=== PATIENT | male | born 1935 ===

== ENCOUNTER 2016-12-06 11:07 | Inpatient (IN) | payer MEDICARE, OTHER ==
[2016-12-06 11:07] VITALS: BMI 32.1
[2016-12-06 12:27] LABS: BASO # 0.1 K/uL (0.0-0.2); BASO % 0.8 % (0.0-2.0); EOS # 0.2 K/uL (0.0-0.7); EOS % 1.9 % (0.0-4.0); HEMATOCRIT 35.6 % (35.0-51.0); LYMPH # 0.9 K/uL (1.0-4.3); LYMPH % 10.6 % (20.0-40.0); MEAN CELL VOLUME 89.7 fl (80.0-94.0); MEAN CORPUSCULAR HEMOGLOBIN 28.9 pg (27.0-31.0); MEAN CORPUSCULAR HGB CONC 32.2 g/dL (33.0-37.0); MONO % 10.8 % (0.0-10.0); NEUT # 6.7 K/uL (1.8-7.0); NEUT % 75.9 % (50.0-75.0); RED CELL DISTRIBUTION WIDTH 17.6 % (11.5-14.5); WHITE BLOOD COUNT 8.9 K/uL (4.8-10.8)
[2016-12-06 12:40] LABS: ALB/GLOB RATIO 1.5 (1.0-2.1); BILIRUBIN,TOTAL 1.6 mg/dl (0.2-1.3); CALCIUM 10.1 mg/dL (8.4-10.2); POTASSIUM 3.9 MMOL/L (3.6-5.0); TOTAL PROTEIN 6.8 G/DL (6.3-8.2)
[2016-12-06 12:51] LABS: TROPONIN I 0.021 ng/mL (0.00-0.120)
[2016-12-06 13:12] LABS: PARTIAL THROMBOPLASTIN TIME 41.4 SECONDS (23.3-32.5)
--- NOTE | 2016-12-06 13:26 | RAD ---
PROCEDURE: CHEST RADIOGRAPH, 1 VIEW HISTORY: CP COMPARISON: 08/12/2016 FINDINGS: LUNGS: Increased pulmonary vascular congestion. No focal airspace opacity. PLEURA: No pneumothorax or significant pleural fluid seen. CARDIOVASCULAR: Enlarged cardiomediastinal silhouette, essentially stable. OSSEOUS STRUCTURES: The osseous structures demonstrate degenerative changes. VISUALIZED UPPER ABDOMEN: Upper abdomen is suboptimally evaluated. OTHER FINDINGS: None. IMPRESSION: Increased pulmonary vascular congestion. Enlarged heart, stable. Please note that chest radiographs have low sensitivity for small pulmonary nodules. If indicated, chest CT should be obtained.
--- NOTE | 2016-12-06 14:00 | US ---
PROCEDURE: Bilateral lower extremity venous duplex Doppler. HISTORY: BLE swelling COMPARISON: 08/09/2016. TECHNIQUE: Bilateral common femoral, superficial femoral, popliteal and posterior tibial veins were evaluated. Flow was assessed with color Doppler, compressibility, assessment of phasic flow and augmentation response. FINDINGS: COMMON FEMORAL VEIN: Right CFV: Unremarkable. Left CFV: Unremarkable. SUPERFICIAL FEMORAL VEIN: Right SFV: Unremarkable. Left SFV: Unremarkable. POPLITEAL VEIN: Right Popliteal: Unremarkable. Left Popliteal: Unremarkable. POSTERIOR TIBIAL VEIN: Right PTV: Unremarkable. Left PTV: Unremarkable. OTHER FINDINGS: Extensive edema in the lower extremities. Heterogeneous hypoechoic structure/fluid collection in the right popliteal fossa, without internal vascularity. This could represent a synovial cyst. IMPRESSION: No evidence of deep venous thrombosis. Extensive soft tissue edema bilaterally.
[2016-12-06] MEDS ORDERED: Albuterol-Ipratrop 3 mg / 0.5 (3 ml) UD IH PRN (14:29)
[2016-12-06] MEDS ORDERED: Ergocalciferol 50,000 Intl Units Cap PO SCH (14:30)
--- NOTE | 2016-12-06 16:07 | CP.PCM.HP ---
History of Present Illness - History of Present Illness History of Present Illness: Chief Complaint: leg pain and generalized weakness HPI: 81M with history of AFib, mod MR, mild to mod Pulm HTN, DM2, HTN, CKD stage III and Gout presented today with a 2 day history of worsening moderate lower extremity edema associated with mild shortness of breath and fatigue. In ER dopplers were negative, CXR showed vasc congestion, and BNP was elevated. He has a history of mod MR and mild to moderate pulmonary hypertension. Lasix 80IVP given in ER. Troponin neg. EKG Afib rate controlled at 61. Patient will be admitted for further diuresis and monitoring on tele. Vitals are stable no acute distress. ROS: Per HPI, all other systems reviewed negative by me PMH: AFib, DM2, HTN, CKD stage III, splenic lesion and Gout PSH: hernia repair FH: denies SH: denies tobacco, etoh, ivdu ALLERGIES: NKDA MEDICATIONS: reviewed and as below GENERAL APPEARANCE: Well developed, well nourished, alert and cooperative, appears fatigued HEENT: normocephalic, atraumatic PERRL, EOMI. Vision is grossly intact. External auditory canals clear, hearing grossly intact. No nasal discharge. Oral cavity and pharynx normal. No inflammation, swelling, exudate, or lesions. NECK: Neck supple, non-tender without lymphadenopathy, masses or thyromegaly. CARDIAC: Normal S1 and S2. No S3, S4 or murmurs. Rhythm is regular. LUNGS: Clear to auscultation +rales no rhonchi, wheezing, diminished breath sounds. ABDOMEN: Positive bowel sounds. Soft, nondistended, nontender. No guarding or rebound. No masses. BACK: Examination of the spine reveals no spinal deformity, symmetry of spinal muscles, EXTREMITIES: No significant deformity or joint abnormality. No edema. NEUROLOGICAL: Strength and sensation symmetric and intact throughout. Reflexes 2 + throughout. SKIN: Skin normal color, texture PSYCHIATRIC: The patient was oriented to person, place, and time. Normal affect. LABS: 12/06/16 12:17 12/06/16 12:17 BNP [id number] IMAGING STUDIES CXR vascular congestion Dopplers neg for DVT EKG AFIB rate controlled 61 ACTIVE MEDICATIONS Albuterol/Ipratropium [Duoneb 3 mg/0.5 mg (3 ml) UD] 3 ml IH Q6H PRN Docusate [Colace] 100 mg PO BID PRN Zolpidem [Ambien] 5 mg PO HS PRN Dabigatran [Pradaxa] 75 mg PO Q12H Anticoagulation Clinical Indication: Atrial Fibrillation Ergocalciferol [Drisdol 50,000 Intl Units Cap] 1 cap PO QWK Atenolol [Tenormin] 50 mg PO BID Dorzolamide 2% [Trusopt] 1 drop OU TID Famotidine [Pepcid] 20 mg PO BID Gabapentin [Neurontin] 300 mg PO TID Atorvastatin [Lipitor] 10 mg PO QPM Furosemide [Lasix] 60 mg IVP Q12 Latanoprost 0.005% Opht [Xalatan Opht] 1 drop OU HS Allopurinol [Zyloprim] 100 mg PO DAILY Folic Acid 1 mg PO DAILY Lidocaine 5% [Lidoderm] 1 ea TD DAILY Losartan [Cozaar] 100 mg PO DAILY amLODIPine [Norvasc] 10 mg PO DAILY ASSESSMENT AND PLAN 81M with history of AFib, mod MR, mild to mod Pulm HTN, DM2, HTN, CKD stage III and Gout presented today with a 2 day history of worsening moderate lower extremity edema associated with mild shortness of breath and fatigue. In ER dopplers were negative, CXR showed vasc congestion, and BNP was elevated. He has a history of mod MR and mild to moderate pulmonary hypertension. Lasix 80IVP given in ER. Troponin neg. EKG Afib rate controlled at 61. Patient will be admitted for further diuresis and monitoring on tele. Vitals are stable no acute distress. (1) Diastolic CHF, acute on chronic, EF normal Admitted for fatigue, lower extremity edema and increased SOB elevated pro BNP ECHO: mod MR, mild to mod Pulm HTN cont Lasix 60 IV Q12, BB, Cozaar Na and fluid restriction monitor I/O monitor BMP (2) Hypertension Cont Atenolol, Cozaar, Norvasc elevated, reassess after diuresis today (3) Atrial fibrillation, chronic, rate controlled cont renally dosed Pradaxa cont Atenolol (4) CKD (chronic kidney disease) stage 4, GFR 15-29 ml/min at baseline Cr cont Cozaar stable (5) DM2 (diabetes mellitus, type 2) accucheck ISS protocol (6) Gouty arthritis cont Allopurinol (7) DVT prophylaxis Pt on Pradaxa Present on Admission - Present on Admission Any Indicators Present on Admission: No Past Patient History - Infectious Disease Hx of Infectious Diseases: None - Tetanus Immunizations Tetanus Immunization: Unknown - Past Medical History & Family History Past Medical History?: Yes - Past Social History Smoking Status: Never Smoked - CARDIAC Hx Cardiac Disorders: Yes Hx Atrial Fibrillation: Yes Hx Congestive Heart Failure: Yes Hx Hypercholesterolemia: Yes Hx Hypertension: Yes - PULMONARY Hx Respiratory Disorders: No - NEUROLOGICAL Hx Neurological Disorder: No - HEENT Hx HEENT Problems: Yes Hx Cataracts: Yes Hx Glaucoma: Yes - RENAL Hx Chronic Kidney Disease: Yes - ENDOCRINE/METABOLIC Hx Endocrine Disorders: Yes Hx Diabetes Mellitus Type 2: Yes - HEMATOLOGICAL/ONCOLOGICAL Hx Blood Disorders: No Hx Human Immunodeficiency Virus (HIV): No - INTEGUMENTARY Hx Dermatological Problems: No - MUSCULOSKELETAL/RHEUMATOLOGICAL Hx Musculoskeletal Disorders: Yes Hx Arthritis: Yes Hx Falls: Yes Hx Gout: Yes - GASTROINTESTINAL Hx Gastritis: Yes - GENITOURINARY/GYNECOLOGICAL Hx Genitourinary Disorders: No - PSYCHIATRIC Hx Substance Use: No - SURGICAL HISTORY Hx Surgeries: Yes Hx Cholecystectomy: Yes Hx Orthopedic Surgery: Yes (right knee surgery) Other/Comment: Right knee surgery - ANESTHESIA Hx Anesthesia: Yes Hx Anesthesia Reactions: No Hx Malignant Hyperthermia: No Meds Allergies/Adverse Reactions: Allergies Allergy/AdvReac Type Severity Reaction Status Date / Time No Known Allergies Allergy Verified 08/09/16 10:45 Results - Vital Signs Recent Vital Signs: Last Vital Signs Temp 98.3 F 12/06/16 11:35 Pulse 65 12/06/16 11:35 Resp 21 12/06/16 11:35 BP 157/93 H 12/06/16 14:34 Pulse Ox 98 12/06/16 11:35 - Labs Result Diagrams: 12/06/16 12:17 12/06/16 12:17
--- NOTE | 2016-12-06 16:35 | ED PDOC ---
HPI: SOB/CHF/COPD Time Seen by Provider: 12/06/16 11:30 Chief Complaint (Nursing): Lower Extremity Problem/Injury Chief Complaint (Provider): Shortness of Breath History Per: Patient History/Exam Limitations: no limitations Onset/Duration Of Symptoms: Days (1 week) Current Symptoms Are (Timing): Still Present Current Respiratory Medications: See Home Med List Severity: Moderate Associated Symptoms: Chest Pain, Ankle/Leg Swelling (b/l leg swelling), Other ( dry cough). denies: Fever, Bloody Cough, Productive Cough Additional Complaint(s): Noe Diego is a 81 year old female, a past medical history of congestive heart failure, atrial fibrillation, and hypertension, who presents to the emergency department via EMS for the evaluation of shortness of breath, that the patient has been experiencing for 1 week. Associated bilateral leg swelling, a dry cough, and chest pain are currently present. Denies a fever. Of note, patient is compliant with all of his medications. PMD: Mason Robertson Past Medical History Reviewed: Historical Data, Nursing Documentation, Vital Signs Vital Signs: Last Vital Signs Temp 97.8 F 12/08/16 16:13 Pulse 64 12/08/16 17:39 Resp 20 12/08/16 16:13 BP 144/81 12/08/16 17:39 Pulse Ox 97 12/08/16 16:13 - Medical History PMH: Arthritis, Atrial Fibrillation, CHF, Diabetes (type II), Gastritis, HTN, Hypercholesterolemia, Hyperlipidemia, Chronic Kidney Disease Denies: HIV Other PMH: Cataracts, Glaucoma - Surgical History Surgical History: Cholecystectomy, Hernia Repair Other surgeries: R Knee Surgery - Family History Family History: States: No Known Family Hx - Social History Current smoker - smoking cessation education provided: No Ex-Smoker (has not smoked in the last 12 months): No Alcohol: Occasional Drugs: Denies - Home Medications Home Medications: Ambulatory Orders Medication Instructions Recorded Albuterol/Ipratropium [Duoneb 3 3 ml IH Q6H PRN 08/09/16 mg/0.5 mg (3 ml) UD] Allopurinol [Zyloprim] 100 mg PO DAILY 08/09/16 Atenolol [Tenormin] 50 mg PO BID 08/09/16 Dabigatran [Pradaxa] 75 mg PO Q12H 08/09/16 Dorzolamide 2% [Trusopt] 1 drop EACHEYE TID 08/09/16 Ergocalciferol (Vitamin D2) 50,000 unit PO QWK 08/09/16 [Vitamin D2] Folic Acid 1 mg PO DAILY 08/09/16 Gabapentin [Neurontin] 300 mg PO TID 08/09/16 Losartan [Cozaar] 100 mg PO DAILY 08/09/16 Simvastatin [Zocor] 20 mg PO QPM 08/09/16 Travoprost [Travatan Z] 1 drop EACHEYE HS 08/09/16 amLODIPine [Norvasc] 10 mg PO DAILY 08/09/16 Docusate [Colace] 100 mg PO BID PRN #0 cap 08/14/16 Famotidine [Pepcid] 20 mg PO BID tab 08/14/16 Furosemide [Lasix] 40 mg PO Q12 tab 08/14/16 Lidocaine 5% [Lidoderm] 1 ea TD DAILY patch 08/14/16 Zolpidem [Ambien] 5 mg PO HS PRN #0 08/14/16 traMADol [Ultram] 50 mg PO Q6 PRN #0 tab 08/14/16 - Allergies Allergies/Adverse Reactions: Allergies Allergy/AdvReac Type Severity Reaction Status Date / Time No Known Allergies Allergy Verified 08/09/16 10:45 Review of Systems ROS Statement: Except As Marked, All Systems Reviewed And Found Negative Constitutional: Negative for: Fever Cardiovascular: Positive for: Chest Pain, Edema (b/l leg swelling) Respiratory: Positive for: Cough, Shortness of Breath. Negative for: Hemoptysis , Sputum Physical Exam - Reviewed Nursing Documentation Reviewed: Yes Vital Signs Reviewed: Yes - Physical Exam Appears: Positive for: Non-toxic, No Acute Distress Head Exam: Positive for: ATRAUMATIC, NORMOCEPHALIC Skin: Positive for: Normal Color, Warm Cardiovascular/Chest: Positive for: Irregularly Irregular. Negative for: Regular Rate, Rhythm (regular rate, not rhythm), Murmur Respiratory: Positive for: Normal Breath Sounds, Respiratory Distress (mild). Negative for: Wheezing Gastrointestinal/Abdominal: Positive for: Normal Exam, Soft. Negative for: Tenderness Back: Positive for: Normal Inspection. Negative for: L CVA Tenderness, R CVA Tenderness Extremity: Positive for: Normal ROM, Pedal Edema (pitting, 3+ to b/l knees), Swelling. Negative for: Tenderness Neurologic/Psych: Positive for: Alert, Oriented - Laboratory Results Result Diagrams: 12/07/16 05:30 12/08/16 06:40 - ECG Interpretation Of ECG: A fib @ 61, LAD, IRBBB. O2 Sat by Pulse Oximetry: 98 (RA) Pulse Ox Interpretation: Normal - Radiology X-Ray: Read By Radiologist (Increased pulmonary vascular congestion. Enlarged heart, stable. Please note that chest radiographs have low sensitivity for small pulmonary nodules. If indicated, chest CT should be obtained.) - Progress ED Course And Treament: Pt administered Lasix 80 mg IVP. - Physician Consult Information Physician Contacted: Mason Robertson Outcome Of Conversation: Case discussed, agrees with admission. Medical Decision Making Medical Decision Makin:30 Initial Impression: Chest pain Differential Diagnoses include, but are not limited to, congestive heart failure , bronchitis, and pneumonia. Initial Plan: * Duplex Lower Extrm Vein Bilat US * Chest X-Ray * Electrocardiogram * Complete Blood Count * Comprehensive Metabolic Panel * Prothrombin Time * Partial Thromboplastin Time * B-Type Natriuretic Peptide * Troponin I * Lasix 60 mg IVP * Blood Culture * Reevaluation Scribe Attestation: Documented by Mendel Singleton, acting as a scribe for Julia Carpenter MD. Provider Scribe Attestation: All medical record entries made by the Scribe were at my direction and personally dictated by me. I have reviewed the chart and agree that the record accurately reflects my personal performance of the history, physical exam, medical decision making, and the department course for this patient. I have also personally directed, reviewed, and agree with the discharge instructions and disposition. Disposition - Clinical Impression Clinical Impression: CHF exacerbation - Patient ED Disposition Is Patient to be Admitted: Yes - Disposition Disposition Time: 14:24 Condition: STABLE - Pt Status Changed To: Hospital Disposition Of: Inpatient - Admit Certification Admit to Inpatient:: After my assessment, the patient will require hospitalization for at least two midnights. This is because of the severity of symptoms shown, intensity of services needed, and/or the medical risk in this patient being treated as an outpatient. - POA Present On Arrival: None
[2016-12-06] MEDS: Dorzolamide 2% Ophth Soln OU SCH (20:20)
[2016-12-06] MEDS: Latanoprost 0.005% Opht SOUTION OU SCH (21:05)
[2016-12-06] MEDS: Insulin Lispro (humaLOG) 100 Units/ml Inj SC SCH (21:09)
[2016-12-07] MEDS: Insulin Lispro (humaLOG) 100 Units/ml Inj SC SCH ×4 (06:38→21:54)
[2016-12-07 06:46] LABS: HEMATOCRIT 34.8 % (35.0-51.0); MEAN CELL VOLUME 91.1 fl (80.0-94.0); MEAN CORPUSCULAR HEMOGLOBIN 29.4 pg (27.0-31.0); MEAN CORPUSCULAR HGB CONC 32.2 g/dL (33.0-37.0); WHITE BLOOD COUNT 9.3 K/uL (4.8-10.8)
[2016-12-07 06:51] LABS: CALCIUM 9.7 mg/dL (8.4-10.2); POTASSIUM 3.4 MMOL/L (3.6-5.0)
[2016-12-07 07:03] LABS: TROPONIN I 0.023 ng/mL (0.00-0.120)
[2016-12-07 07:21] LABS: THYROID STIMULATING HORMONE 1.41 mIU/ML (0.46-4.68)
--- NOTE | 2016-12-07 08:07 | CARD ---
APPROVED REPORT EKG Measurement Heart [id number] <Conclusion> Atrial fibrillation Left axis deviation Incomplete right bundle branch block Nonspecific ST and T wave abnormality Abnormal ECG
[2016-12-07] MEDS: Lidocaine 5% Patch TD SCH (09:20)
[2016-12-07] MEDS: Dorzolamide 2% Ophth Soln OU SCH ×3 (09:21→17:37)
--- NOTE | 2016-12-07 09:48 | CP.PCM.PN ---
Subjective - Date & Time of Evaluation Date of Evaluation: 12/07/16 Time of Evaluation: 09:00 - Subjective Subjective: Pt feels better no SOB at present no CP still with bilateral leg edema no abd pain Objective - Vital Signs/Intake and Output Vital Signs (last 24 hours): Temp Pulse Resp BP Pulse Ox 98.0 F 61 20 157/98 H 99 12/07/16 08:23 12/07/16 09:21 12/07/16 08:23 12/07/16 09:21 12/07/16 08:23 - Medications Medications: Current Medications Albuterol/Ipratropium (Duoneb 3 Mg/0.5 Mg (3 Ml) Ud) 3 ml IH Q6H PRN PRN Reason: Shortness of Breath Allopurinol (Zyloprim) 100 mg PO DAILY [facility] Last Admin: 12/07/16 09:17 Dose: 100 mg Amlodipine Besylate (Norvasc) 5 mg PO DAILY [facility] Last Admin: 12/07/16 09:20 Dose: 5 mg Atenolol (Tenormin) 50 mg PO BID [facility] Last Admin: 12/07/16 09:18 Dose: 50 mg Atorvastatin Calcium (Lipitor) 10 mg PO QPM [facility] Last Admin: 12/06/16 20:19 Dose: 10 mg Dabigatran (Pradaxa) 75 mg PO Q12H [facility] PRN Reason: Protocol Last Admin: 12/07/16 03:39 Dose: 75 mg Docusate Sodium (Colace) 100 mg PO BID PRN PRN Reason: Constipation Dorzolamide HCl (Trusopt) 1 drop OU TID [facility] Last Admin: 12/07/16 09:21 Dose: 1 drop Ergocalciferol (Drisdol 50,000 Intl Units Cap) 1 cap PO QWK [facility] Famotidine (Pepcid) 20 mg PO BID [facility] Last Admin: 12/07/16 09:17 Dose: 20 mg Folic Acid (Folic Acid) 1 mg PO DAILY [facility] Last Admin: 12/07/16 09:21 Dose: 1 mg Furosemide (Lasix) 40 mg IV Q12 [facility] Last Admin: 12/07/16 09:20 Dose: 40 mg Gabapentin (Neurontin) 300 mg PO TID [facility] Last Admin: 12/07/16 09:17 Dose: 300 mg Hydralazine HCl (Apresoline) 10 mg PO TID [facility] Last Admin: 12/07/16 09:19 Dose: 10 mg Insulin Human Lispro (Humalog) 0 units SC ACHS JESSY PRN Reason: Protocol Last Admin: 12/07/16 06:38 Dose: Not Given Latanoprost (Xalatan Opht) 1 drop OU HS [facility] Last Admin: 12/06/16 21:05 Dose: 1 drop Lidocaine (Lidoderm) 1 ea TD DAILY [facility] Last Admin: 12/07/16 09:20 Dose: 1 ea Losartan Potassium (Cozaar) 100 mg PO DAILY [facility] Last Admin: 12/07/16 09:21 Dose: 100 mg Spironolactone (Aldactone) 25 mg PO DAILY [facility] Last Admin: 12/07/16 09:19 Dose: 25 mg Zolpidem Tartrate (Ambien) 5 mg PO HS PRN PRN Reason: Insomnia Last Admin: 12/06/16 23:51 Dose: 5 mg - Labs Labs: 12/07/16 05:30 12/07/16 05:30 PT 13.5 SECONDS (9.6-11.2) H 12/06/16 12:17 INR 1.30 (0.92-1.08) H 12/06/16 12:17 APTT 41.4 SECONDS (23.3-32.5) H 12/06/16 12:17 - Constitutional Appears: No Acute Distress, Chronically Ill - Head Exam Head Exam: NORMAL INSPECTION, NORMOCEPHALIC - Eye Exam Eye Exam: EOMI, Normal appearance Pupil Exam: NORMAL ACCOMODATION - ENT Exam ENT Exam: Mucous Membranes Moist, Normal External Ear Exam - Neck Exam Neck Exam: Full ROM. absent: Meningismus - Respiratory Exam Respiratory Exam: Rales, NORMAL BREATHING PATTERN. absent: Wheezes, Respiratory Distress - Cardiovascular Exam Cardiovascular Exam: Irregular Rhythm, +S1, +S2 - GI/Abdominal Exam GI & Abdominal Exam: Soft, Normal Bowel Sounds. absent: Tenderness - Extremities Exam Extremities Exam: Normal Capillary Refill, Pedal Edema. absent: Calf Tenderness - Back Exam Back Exam: Full ROM. absent: CVA tenderness (L), CVA tenderness (R) - Neurological Exam Neurological Exam: Alert, Awake, CN II-XII Intact, Oriented x3 Neuro motor strength exam: Left Upper Extremity: 5, Right Upper Extremity: 5, Left Lower Extremity: 5, Right Lower Extremity: 5 - Psychiatric Exam Psychiatric exam: Normal Affect, Normal Mood - Skin Skin Exam: Dry, Normal Color, Warm Assessment and Plan - Assessment and Plan (Free Text) Assessment: 80 yo male with history of CHF, AFib, Gout, HTN, CKD and HLD, came in because of SOB and bilateral lower extremity edema. CXR showed increased Pulm vacsular congestion (1) CHF (congestive heart failure; Acute on chronic diastolic dysfunction ) continue Losartan 100mg PO daily cont IV lasix but decrease dose to 40 q12 add Aldactone and Hydralazine decrease Norvasc to 5 mg as this may contribute to leg edema (will keep for Pulm HTN) cardiology consult with Dr Bojorquez. ECHO May 2016 showed normal EF, mod Pulm HTN 2 . Bilateral LE edema Most likely due to mild CHF with overlying w/ dependent edema Venous doppler showed no DVT (3) Atrial fibrillation, chronic Chronic Heart rate controlled. continue Atenolol 50mg PO BID. Continue Pradaxa 75mg PO q 12hrs ( renal dose) - will monitor as Crea Cl (4) Hypertension Chronic BP stable. Continue Norvasc 5mg PO daily. Atenolol 50mg PO BID. Losartan 100mg PO daily added Hydralazine and Aldactone cont Lasix (5) CKD (chronic kidney disease) stage 3, GFR 30-59 ml/min Chronic stable 7. Multiple splenic lesions PET scan as outpatient, pt to ff up with Dr Ang as soon as d/c ] DVT proph - pt on Pradaxa
[2016-12-07] MEDS: Latanoprost 0.005% Opht SOUTION OU SCH (21:49)
[2016-12-08] MEDS: Insulin Lispro (humaLOG) 100 Units/ml Inj SC SCH ×4 (06:34→21:55)
[2016-12-08 08:12] LABS: CALCIUM 9.2 mg/dL (8.4-10.2); POTASSIUM 3.4 MMOL/L (3.6-5.0)
[2016-12-08] MEDS: Dorzolamide 2% Ophth Soln OU SCH ×3 (09:54→17:39)
[2016-12-08] MEDS: Lidocaine 5% Patch TD SCH (09:55)
--- NOTE | 2016-12-08 15:12 | CP.PCM.CON ---
History of Present Illness - History of Present Illness History of Present Illness: CC: Dyspnea. HPI: I have been requested on cardiology consultation by Dr. Malin for Mr. Diego who is a pleasant 81 year old male well known to our practice. He has a history of hypertension, diabetes, CKD and mitral regurgitation and presents with worsening dyspnea on exertion over the past couple of days associated with lower extremity edema and a cough with white sputum production. His symptoms began approximately 1 month ago prior which he could ambulate 15 blocks. However at the present time he is limited to walking only one block before he has to rest due to his shortness of breath. He denies chest pain, fever, chills , nausea, vomiting, abdominal pain or weakness and states that he has been compliant with his medications and no changes in his regimen have been made to account for progression of his symptoms. The patient was treated with IV furosemide with significant improvement in his dyspnea and is currently OOB to a chair without complaints. Labs reveal a BUN/Cr of 43/2.8, Hgb of 11.2 and BNP of 5640. A chest Xray shows cardiomegaly and CHF, ECG reveals atrial fibrillation at 61 BPM, LAD, IRBBB and two sets of troponins are negative. Review of Systems - Constitutional Constitutional: As Per HPI, Fatigue - EENT Additional comments: Negative. - Cardiovascular Cardiovascular: Dyspnea on Exertion, Edema, Pedal Edema - Respiratory Respiratory: Dyspnea on Exertion, Chest Congestion - Gastrointestinal Additional comments: Negative. - Genitourinary Additional comments: Negative. - Musculoskeletal Additional comments: Negative. - Integumentary Additional comments: Negative. - Neurological Additional comments: Negative. - Psychiatric Additional comments: Negative. - Endocrine Additional Comments: Negative. - Hematologic/Lymphatic Additional comments: Negative. Past Patient History - Infectious Disease Hx of Infectious Diseases: None - Tetanus Immunizations Tetanus Immunization: Unknown - Past Medical History & Family History Past Medical History?: Yes - Past Social History Smoking Status: Never Smoked Chewing Tobacco Use: No Cigar Use: No Alcohol: None Drugs: Denies - CARDIAC Hx Cardiac Disorders: Yes Hx Atrial Fibrillation: Yes Hx Congestive Heart Failure: Yes Hx Hypercholesterolemia: Yes Hx Hypertension: Yes - PULMONARY Hx Respiratory Disorders: No - NEUROLOGICAL Hx Neurological Disorder: No - HEENT Hx HEENT Problems: Yes Hx Cataracts: Yes Hx Glaucoma: Yes - RENAL Hx Chronic Kidney Disease: Yes - ENDOCRINE/METABOLIC Hx Endocrine Disorders: Yes Hx Diabetes Mellitus Type 2: Yes - HEMATOLOGICAL/ONCOLOGICAL Hx Blood Disorders: No Hx Human Immunodeficiency Virus (HIV): No - INTEGUMENTARY Hx Dermatological Problems: No - MUSCULOSKELETAL/RHEUMATOLOGICAL Hx Musculoskeletal Disorders: Yes Hx Arthritis: Yes Hx Falls: Yes Hx Gout: Yes - GASTROINTESTINAL Hx Gastrointestinal Disorders: Yes Hx Gastritis: Yes - GENITOURINARY/GYNECOLOGICAL Hx Genitourinary Disorders: No - PSYCHIATRIC Hx Psychophysiologic Disorder: No Hx Substance Use: No - SURGICAL HISTORY Hx Surgeries: Yes Hx Cholecystectomy: Yes Hx Herniorrhaphy: Yes (hernia repair) Hx Orthopedic Surgery: Yes (right knee surgery) Other/Comment: Right knee surgery - ANESTHESIA Hx Anesthesia: Yes Hx Anesthesia Reactions: No Hx Malignant Hyperthermia: No Meds Allergies/Adverse Reactions: Allergies Allergy/AdvReac Type Severity Reaction Status Date / Time No Known Allergies Allergy Verified 08/09/16 10:45 - Medications Medications: Current Medications Albuterol/Ipratropium (Duoneb 3 Mg/0.5 Mg (3 Ml) Ud) 3 ml IH Q6H PRN PRN Reason: Shortness of Breath Allopurinol (Zyloprim) 100 mg PO DAILY [facility] Last Admin: 12/08/16 09:54 Dose: 100 mg Amlodipine Besylate (Norvasc) 5 mg PO DAILY [facility] Last Admin: 12/08/16 09:56 Dose: 5 mg Atenolol (Tenormin) 50 mg PO BID [facility] Last Admin: 12/08/16 09:52 Dose: 50 mg Atorvastatin Calcium (Lipitor) 10 mg PO QPM [facility] Last Admin: 12/07/16 17:42 Dose: 10 mg Dabigatran (Pradaxa) 75 mg PO Q12 [facility] PRN Reason: Protocol Last Admin: 12/08/16 09:52 Dose: 75 mg Docusate Sodium (Colace) 100 mg PO BID PRN PRN Reason: Constipation Dorzolamide HCl (Trusopt) 1 drop OU TID [facility] Last Admin: 12/08/16 12:47 Dose: 1 drop Ergocalciferol (Drisdol 50,000 Intl Units Cap) 1 cap PO QWK [facility] Famotidine (Pepcid) 20 mg PO BID [facility] Last Admin: 12/08/16 09:53 Dose: 20 mg Folic Acid (Folic Acid) 1 mg PO DAILY [facility] Last Admin: 12/08/16 09:54 Dose: 1 mg Furosemide (Lasix) 40 mg IV Q12 [facility] Last Admin: 12/08/16 09:52 Dose: 40 mg Gabapentin (Neurontin) 300 mg PO TID [facility] Last Admin: 12/08/16 12:47 Dose: 300 mg Hydralazine HCl (Apresoline) 10 mg PO TID [facility] Last Admin: 12/08/16 12:47 Dose: 10 mg Insulin Human Lispro (Humalog) 0 units SC ACHS [facility] PRN Reason: Protocol Last Admin: 12/08/16 12:45 Dose: Not Given Latanoprost (Xalatan Opht) 1 drop OU HS [facility] Last Admin: 12/07/16 21:49 Dose: 1 drop Lidocaine (Lidoderm) 1 ea TD DAILY [facility] Last Admin: 12/08/16 09:55 Dose: 1 ea Losartan Potassium (Cozaar) 100 mg PO DAILY [facility] Last Admin: 12/08/16 09:55 Dose: 100 mg Spironolactone (Aldactone) 25 mg PO DAILY [facility] Last Admin: 12/08/16 09:55 Dose: 25 mg Zolpidem Tartrate (Ambien) 5 mg PO HS PRN PRN Reason: Insomnia Last Admin: 12/07/16 21:49 Dose: 5 mg Physical Exam - Constitutional Appears: Well, Non-toxic, No Acute Distress - Head Exam Head Exam: NORMAL INSPECTION, NORMOCEPHALIC - Eye Exam Eye Exam: Normal appearance, PERRL - ENT Exam ENT Exam: Mucous Membranes Moist, Normal Exam - Neck Exam Neck exam: Positive for: Normal Inspection - Respiratory Exam Respiratory Exam: Clear to Auscultation Bilateral, NORMAL BREATHING PATTERN - Cardiovascular Exam Cardiovascular Exam: Irregular Rhythm, +S1, +S2, Systolic Murmur - GI/Abdominal Exam GI & Abdominal Exam: Soft - Rectal Exam Rectal Exam: Deferred - Extremities Exam Extremities exam: Positive for: pedal edema - Back Exam Back exam: NORMAL INSPECTION - Neurological Exam Neurological exam: Alert, Oriented x3 - Psychiatric Exam Psychiatric exam: Normal Affect, Normal Mood - Skin Skin Exam: Dry, Intact Results - Vital Signs Recent Vital Signs: Last Vital Signs Temp 98.7 F 12/08/16 11:58 Pulse 66 12/08/16 12:47 Resp 18 12/08/16 11:58 BP 121/77 12/08/16 12:47 Pulse Ox 97 12/08/16 11:58 - Labs Result Diagrams: 12/07/16 05:30 12/08/16 06:40 Labs: Laboratory Results - last 24 hr 12/07/16 12/07/16 12/08/16 15:29 20:56 05:02 Sodium Potassium Chloride Carbon Dioxide Anion Gap BUN Creatinine Est GFR ( Amer) Est GFR (Non-Af Amer) POC Glucose (mg/dL) 89 146 H 97 Random Glucose Calcium 12/08/16 12/08/16 06:40 11:21 Sodium 143 Potassium 3.4 L Chloride 102 Carbon Dioxide 27 Anion Gap 17 BUN 43 H Creatinine 2.8 H Est GFR ( Amer) 26 Est GFR (Non-Af Amer) 22 POC Glucose (mg/dL) 126 H Random Glucose 86 Calcium 9.2 Assessment & Plan - Assessment and Plan (Free Text) Assessment: CHF CMP Valvular heart disease HTN Chronic renal disease Plan: IV lasix Monitor I/O's Monitor renal function PT Will follow, thank you - Date & Time Date: 12/08/16 Time: 15:10
[2016-12-08] MEDS ORDERED: Potassium Chloride 20 mEq/15 ml LIQ UD PO ONE (18:58)
--- NOTE | 2016-12-08 19:03 | CP.PCM.PN ---
Subjective - Date & Time of Evaluation Date of Evaluation: 12/08/16 Time of Evaluation: 15:30 - Subjective Subjective: Patient seen and examined bedside.Sitting in chair in NAD. Still complaining of SOB with ambulation . Denies any Chest pain at present or SOB at rest. Denies any cough. No acute issues overnight BP 144/81 HR 64 , afebrile Objective - Vital Signs/Intake and Output Vital Signs (last 24 hours): Temp Pulse Resp BP Pulse Ox 97.8 F 64 20 144/81 98 12/08/16 16:13 12/08/16 17:39 12/08/16 16:13 12/08/16 17:39 12/08/16 18:37 Intake and Output: 12/08/16 12/08/16 06:59 18:59 Intake Total 600 Output Total 1350 Balance -750 - Medications Medications: Current Medications Albuterol/Ipratropium (Duoneb 3 Mg/0.5 Mg (3 Ml) Ud) 3 ml IH Q6H PRN PRN Reason: Shortness of Breath Allopurinol (Zyloprim) 100 mg PO DAILY [facility] Last Admin: 12/08/16 09:54 Dose: 100 mg Amlodipine Besylate (Norvasc) 5 mg PO DAILY [facility] Last Admin: 12/08/16 09:56 Dose: 5 mg Atenolol (Tenormin) 50 mg PO BID [facility] Last Admin: 12/08/16 17:39 Dose: 50 mg Atorvastatin Calcium (Lipitor) 10 mg PO QPM [facility] Last Admin: 12/08/16 17:39 Dose: 10 mg Dabigatran (Pradaxa) 75 mg PO Q12 [facility] PRN Reason: Protocol Last Admin: 12/08/16 09:52 Dose: 75 mg Docusate Sodium (Colace) 100 mg PO BID PRN PRN Reason: Constipation Dorzolamide HCl (Trusopt) 1 drop OU TID [facility] Last Admin: 12/08/16 17:39 Dose: 1 drop Ergocalciferol (Drisdol 50,000 Intl Units Cap) 1 cap PO QWK [facility] Famotidine (Pepcid) 20 mg PO BID [facility] Last Admin: 12/08/16 17:38 Dose: 20 mg Folic Acid (Folic Acid) 1 mg PO DAILY [facility] Last Admin: 12/08/16 09:54 Dose: 1 mg Furosemide (Lasix) 40 mg IV Q12 [facility] Last Admin: 12/08/16 09:52 Dose: 40 mg Gabapentin (Neurontin) 300 mg PO TID [facility] Last Admin: 12/08/16 17:39 Dose: 300 mg Hydralazine HCl (Apresoline) 10 mg PO TID [facility] Last Admin: 12/08/16 17:37 Dose: 10 mg Insulin Human Lispro (Humalog) 0 units SC ACHS [facility] PRN Reason: Protocol Last Admin: 12/08/16 17:38 Dose: Not Given Latanoprost (Xalatan Opht) 1 drop OU HS [facility] Last Admin: 12/07/16 21:49 Dose: 1 drop Lidocaine (Lidoderm) 1 ea TD DAILY [facility] Last Admin: 12/08/16 09:55 Dose: 1 ea Losartan Potassium (Cozaar) 100 mg PO DAILY [facility] Last Admin: 12/08/16 09:55 Dose: 100 mg Potassium Chloride (Potassium Chloride Oral Soln) 10 meq PO ONCE ONE Stop: 12/08/16 18:59 Spironolactone (Aldactone) 25 mg PO DAILY [facility] Last Admin: 12/08/16 09:55 Dose: 25 mg Zolpidem Tartrate (Ambien) 5 mg PO HS PRN PRN Reason: Insomnia Last Admin: 12/07/16 21:49 Dose: 5 mg - Labs Labs: 12/07/16 05:30 12/08/16 06:40 PT 13.5 SECONDS (9.6-11.2) H 12/06/16 12:17 INR 1.30 (0.92-1.08) H 12/06/16 12:17 APTT 41.4 SECONDS (23.3-32.5) H 12/06/16 12:17 - Constitutional Appears: Non-toxic, No Acute Distress - Head Exam Head Exam: ATRAUMATIC, NORMAL INSPECTION, NORMOCEPHALIC - Eye Exam Eye Exam: EOMI, Normal appearance, PERRL Pupil Exam: NORMAL ACCOMODATION - ENT Exam ENT Exam: Mucous Membranes Moist, Normal Exam - Neck Exam Neck Exam: Full ROM, Normal Inspection - Respiratory Exam Respiratory Exam: Clear to Ausculation Bilateral, NORMAL BREATHING PATTERN. absent: Rhonchi, Wheezes - Cardiovascular Exam Cardiovascular Exam: REGULAR RHYTHM, RRR, +S1, +S2. absent: JVD - GI/Abdominal Exam GI & Abdominal Exam: Soft, Normal Bowel Sounds. absent: Distended, Guarding, Tenderness, Rebound - Rectal Exam Rectal Exam: Deferred - Extremities Exam Extremities Exam: Full ROM, Normal Capillary Refill, Normal Inspection, Pedal Edema (1 +). absent: Calf Tenderness - Back Exam Back Exam: NORMAL INSPECTION - Neurological Exam Neurological Exam: Alert, Awake, CN II-XII Intact, Oriented x3 - Psychiatric Exam Psychiatric exam: Normal Affect - Skin Skin Exam: Dry, Normal Color, Warm Assessment and Plan - Assessment and Plan (Free Text) Assessment: 80 yo male with history of CHF, AFib, Gout, HTN, CKD and HLD, came in because of SOB and bilateral lower extremity edema.As per patient he can not ambulate more rthan 1 block . CXR showed increased Pulmonary vascular congestion. ProBNP was elevated.Patient admitted for CHF exacerbation and cardiology consulted. 1. CHF exacerbation (congestive heart failure; Acute on chronic diastolic dysfunction ) improving continue Losartan 100mg PO daily cont IV lasix 40 mg q12 added Aldactone and Hydralazine decreased Norvasc to 5 mg as this may contribute to leg edema (will keep for Pulm HTN) cardiology consult with Dr Bojorquez appreciated ECHO 2015 showed normal EF, mod Pulm HTN Continue low salt diet 2 . Bilateral LE edema Most likely due to mild CHF with overlying w/ dependent edema Venous doppler showed no DVT Continue lasix 3. Atrial fibrillation, chronic Chronic Heart rate controlled. continue Atenolol 50mg PO BID. Continue Pradaxa 75mg PO q 12hrs ( renal dose) 4. Hypertension Chronic BP stable. Continue Norvasc 5mg PO daily. Atenolol 50mg PO BID. Losartan 100mg PO daily added Hydralazine and Aldactone cont Lasix 5. CKD (chronic kidney disease) stage 3, GFR 30-59 ml/min Chronic stable 6. Multiple splenic lesions PET scan as outpatient pt to ff up with Dr Ang as soon as d/c 7. Mild anemia with thrombocytopenia Most likely chronic monitor for now 8.DVT proph pt on Pradaxa
[2016-12-08] MEDS: Latanoprost 0.005% Opht SOUTION OU SCH (21:46)
[2016-12-09] MEDS: Insulin Lispro (humaLOG) 100 Units/ml Inj SC SCH ×2 (06:35→13:15)
[2016-12-09 06:37] LABS: HEMATOCRIT 35.3 % (35.0-51.0); MEAN CELL VOLUME 88.8 fl (80.0-94.0); MEAN CORPUSCULAR HEMOGLOBIN 28.6 pg (27.0-31.0); MEAN CORPUSCULAR HGB CONC 32.2 g/dL (33.0-37.0); RED CELL DISTRIBUTION WIDTH 17.1 % (11.5-14.5); WHITE BLOOD COUNT 9.1 K/uL (4.8-10.8)
[2016-12-09 07:50] LABS: CALCIUM 9.1 mg/dL (8.4-10.2); POTASSIUM 3.8 MMOL/L (3.6-5.0)
[2016-12-09] MEDS: Lidocaine 5% Patch TD SCH (09:06)
[2016-12-09] MEDS: Dorzolamide 2% Ophth Soln OU SCH ×2 (09:09→13:14)
--- NOTE | 2016-12-09 11:45 | CP.PCM.DIS ---
Provider - Provider Date of Admission: 12/06/16 14:24 Attending physician: Dionne Malin DO Primary care physician: Dr. Robertson Consults: Cardiology consult Time Spent in preparation of Discharge (in minutes): 20 Hospital Course - Lab Results Lab Results: Most Recent Lab Values WBC 9.1 K/uL (4.8-10.8) 12/09/16 05:30 RBC 3.98 Mil/uL (4.40-5.90) L 12/09/16 05:30 Hgb 11.4 g/dL (12.0-18.0) L 12/09/16 05:30 Hct 35.3 % (35.0-51.0) 12/09/16 05:30 MCV 88.8 fl (80.0-94.0) D 12/09/16 05:30 MCH 28.6 pg (27.0-31.0) 12/09/16 05:30 MCHC 32.2 g/dL (33.0-37.0) L 12/09/16 05:30 RDW 17.1 % (11.5-14.5) H 12/09/16 05:30 Plt Count 128 K/uL (130-400) L 12/09/16 05:30 MPV 9.0 fl (7.2-11.7) 12/06/16 12:17 Neut % (Auto) 75.9 % (50.0-75.0) H 12/06/16 12:17 Lymph % (Auto) 10.6 % (20.0-40.0) L 12/06/16 12:17 Luna % (Auto) 10.8 % (0.0-10.0) H 12/06/16 12:17 Eos % (Auto) 1.9 % (0.0-4.0) 12/06/16 12:17 Baso % (Auto) 0.8 % (0.0-2.0) 12/06/16 12:17 Neut # 6.7 K/uL (1.8-7.0) 12/06/16 12:17 Lymph # 0.9 K/uL (1.0-4.3) L 12/06/16 12:17 Luna # 1.0 K/uL (0.0-0.8) H 12/06/16 12:17 Eos # 0.2 K/uL (0.0-0.7) 12/06/16 12:17 Baso # 0.1 K/uL (0.0-0.2) 12/06/16 12:17 PT 13.5 SECONDS (9.6-11.2) H 12/06/16 12:17 INR 1.30 (0.92-1.08) H 12/06/16 12:17 APTT 41.4 SECONDS (23.3-32.5) H 12/06/16 12:17 Sodium 143 mmol/l (132-148) 12/09/16 05:30 Potassium 3.8 MMOL/L (3.6-5.0) 12/09/16 05:30 Chloride 103 mmol/L (98-107) 12/09/16 05:30 Carbon Dioxide 25 mmol/L (22-30) 12/09/16 05:30 Anion Gap 18 (10-20) 12/09/16 05:30 BUN 52 mg/dl (9-20) H 12/09/16 05:30 Creatinine 3.1 mg/dL (0.8-1.5) H 12/09/16 05:30 Est GFR ( Amer) 24 12/09/16 05:30 Est GFR (Non-Af Amer) 19 12/09/16 05:30 POC Glucose (mg/dL) 89 mg/dL (65-110) 12/09/16 04:53 Random Glucose 81 mg/dL (75-110) 12/09/16 05:30 Calcium 9.1 mg/dL (8.4-10.2) 12/09/16 05:30 Total Bilirubin 1.6 mg/dl (0.2-1.3) H 12/06/16 12:17 AST 36 U/L (17-59) 12/06/16 12:17 ALT 38 U/L (21-72) 12/06/16 12:17 Alkaline Phosphatase 96 U/L (38-126) 12/06/16 12:17 Troponin I 0.0230 ng/mL (0.00-0.120) 12/07/16 05:30 NT-Pro-B Natriuret Pep 2580 pg/ml (0-900) H 12/09/16 05:30 Total Protein 6.8 G/DL (6.3-8.2) 12/06/16 12:17 Albumin 4.1 g/dL (3.5-5.0) 12/06/16 12:17 Globulin 2.7 gm/dL (2.2-3.9) 12/06/16 12:17 Albumin/Globulin Ratio 1.5 (1.0-2.1) 12/06/16 12:17 TSH 3rd Generation 1.41 mIU/ML (0.46-4.68) 12/07/16 05:30 - Hospital Course Hospital Course: 80 yo male with history of CHF, AFib, Gout, HTN, CKD and HLD, came in because of SOB and bilateral lower extremity edema.As per patient he can not ambulate more than 1 block . CXR showed increased Pulmonary vascular congestion. ProBNP was elevated.Patient admitted for CHF exacerbation and cardiology consulted. 1. CHF exacerbation (congestive heart failure; Acute on chronic diastolic dysfunction ) improving continue Losartan 100mg PO daily cont IV lasix 40 mg q12 added Aldactone and Hydralazine decreased Norvasc to 5 mg as this may contribute to leg edema (will keep for Pulm HTN) cardiology consult with Dr Bojorquez appreciated ECHO 2015 showed normal EF, mod Pulm HTN Continue low salt diet 2 . Bilateral LE edema Most likely due to mild CHF with overlying dependent edema Venous doppler showed no DVT Continue lasix 3. Atrial fibrillation, chronic Chronic Heart rate controlled. continue Atenolol 50mg PO BID. Continue Pradaxa 75mg PO q 12hrs ( renal dose) 4. Hypertension Chronic BP stable. Continue Norvasc 5mg PO daily. Atenolol 50mg PO BID. Losartan 100mg PO daily added Hydralazine and Aldactone cont Lasix 5. CKD (chronic kidney disease) stage 3, GFR 30-59 ml/min Chronic stable 6. Multiple splenic lesions PET scan as outpatient pt to ff up with Dr Ang as soon as d/c 7. Mild anemia with thrombocytopenia Most likely chronic monitor for now 8.DVT proph pt on Pradaxa Discharge Exam - Head Exam Head Exam: NORMAL INSPECTION, NORMOCEPHALIC - Eye Exam Eye Exam: EOMI, Normal appearance, PERRL Pupil Exam: NORMAL ACCOMODATION - ENT Exam ENT Exam: Mucous Membranes Moist, Normal Exam - Neck Exam Neck exam: Full Rom, Normal Inspection - Respiratory Exam Respiratory Exam: Clear to PA & Lateral, NORMAL BREATHING PATTERN. absent: Rales, Rhonchi, Wheezes - Cardiovascular Exam Cardiovascular Exam: Irregular Rhythm. absent: JVD - GI/Abdominal Exam GI & Abdominal Exam: Normal Bowel Sounds, Soft, Unremarkable. absent: Distended , Guarding, Rebound, Rigid - Rectal Exam Rectal Exam: Deferred - Extremities Exam Extremities exam: normal capillary refill, normal inspection, pedal edema (1 +) , pedal pulses present - Back Exam Back exam: NORMAL INSPECTION - Neurological Exam Neurological exam: Alert, CN II-XII Intact, Oriented x3 - Psychiatric Exam Psychiatric exam: Normal Affect - Skin Skin Exam: Dry, Intact, Normal Color, Warm Discharge Plan - Discharge Medications Prescriptions: Allopurinol [Zyloprim] 100 mg PO DAILY #30 amLODIPine [Norvasc] 5 mg PO DAILY #30 amLODIPine [Norvasc] 5 mg PO DAILY #30 tab Atenolol [Tenormin] 50 mg PO BID #30 Dabigatran [Pradaxa] 75 mg PO Q12H #60 Furosemide [Lasix] 40 mg PO Q12 #60 tab hydrALAZINE [Apresoline] 10 mg PO TID #90 tab Losartan [Cozaar] 100 mg PO DAILY #30 Simvastatin [Zocor] 20 mg PO QPM #30 Spironolactone [Aldactone] 25 mg PO DAILY #30 tab - Follow Up Plan Condition: STABLE Disposition: HOME/ ROUTINE Patient education suggested?: Yes Instructions: Heart Failure (DC) Referrals: Mason Robertson MD [Family Provider] - Boston Mcadams MD [Staff Provider] - Luis Ang MD [Staff Provider] - Clinical Quality Measures - CQM - Heart Failure Ejection Fraction: 40 % or Greater Left Ventricular Function to be assessed after discharge: No Beta-Barbara Prescribed: None Contraindication/Reason for not providing: on atenolol Angiotensin II Receptor Barbara Prescribed: Yes AnticoagulationTherapy for Atrial Fibrillation/Atrialflutter: Yes Aldosterone Antagonist Prescribed: Yes Hydralazine Nitrate Prescribed: Yes Follow Up Date (must be within 7 days from discharge): 12/14/16 Follow Up Time: 09:00
[2016-12-09 12:21] VITALS: BP 119/71; PULSE 67; RESP 20; TEMP 97.8; O2SAT 99
--- NOTE | 2016-12-09 12:32 | CP.PCM.PN ---
Subjective - Date & Time of Evaluation Date of Evaluation: 12/09/16 Time of Evaluation: 12:29 - Subjective Subjective: Reason for visit: Dyspnea. Interval history: Mr. Villatoro is OOB to a chair and accompanied by his family member. He states his dyspnea and lower extremity edema have improved and he has no chest pain, palpitations or abdominal pain. He is well diuresed and ambulating without difficulty. I have discussed the case with Dr. Singleton and the plan is to add aldactone and decrease amlodipine with the potential for discharge today. Objective - Vital Signs/Intake and Output Vital Signs (last 24 hours): Temp Pulse Resp BP Pulse Ox 97.8 F 67 20 119/71 99 12/09/16 12:20 12/09/16 12:20 12/09/16 12:20 12/09/16 12:20 12/09/16 12:20 - Medications Medications: Current Medications Albuterol/Ipratropium (Duoneb 3 Mg/0.5 Mg (3 Ml) Ud) 3 ml IH Q6H PRN PRN Reason: Shortness of Breath Allopurinol (Zyloprim) 100 mg PO DAILY [facility] Last Admin: 12/09/16 09:09 Dose: 100 mg Amlodipine Besylate (Norvasc) 5 mg PO DAILY [facility] Last Admin: 12/09/16 09:08 Dose: 5 mg Atenolol (Tenormin) 50 mg PO BID [facility] Last Admin: 12/09/16 09:09 Dose: 50 mg Atorvastatin Calcium (Lipitor) 10 mg PO QPM [facility] Last Admin: 12/08/16 17:39 Dose: 10 mg Dabigatran (Pradaxa) 75 mg PO Q12 [facility] PRN Reason: Protocol Last Admin: 12/09/16 09:10 Dose: 75 mg Docusate Sodium (Colace) 100 mg PO BID PRN PRN Reason: Constipation Dorzolamide HCl (Trusopt) 1 drop OU TID [facility] Last Admin: 12/09/16 09:09 Dose: 1 drop Ergocalciferol (Drisdol 50,000 Intl Units Cap) 1 cap PO QWK [facility] Famotidine (Pepcid) 20 mg PO BID [facility] Last Admin: 12/09/16 09:05 Dose: 20 mg Folic Acid (Folic Acid) 1 mg PO DAILY [facility] Last Admin: 12/09/16 09:03 Dose: 1 mg Furosemide (Lasix) 40 mg IV Q12 [facility] Last Admin: 12/09/16 09:07 Dose: 40 mg Gabapentin (Neurontin) 300 mg PO TID [facility] Last Admin: 12/09/16 09:06 Dose: 300 mg Hydralazine HCl (Apresoline) 10 mg PO TID [facility] Last Admin: 12/09/16 09:08 Dose: 10 mg Insulin Human Lispro (Humalog) 0 units SC ACHS [facility] PRN Reason: Protocol Last Admin: 12/09/16 06:35 Dose: Not Given Latanoprost (Xalatan Opht) 1 drop OU HS [facility] Last Admin: 12/08/16 21:46 Dose: 1 drop Lidocaine (Lidoderm) 1 ea TD DAILY [facility] Last Admin: 12/09/16 09:06 Dose: 1 ea Losartan Potassium (Cozaar) 100 mg PO DAILY [facility] Last Admin: 12/09/16 09:03 Dose: 100 mg Spironolactone (Aldactone) 25 mg PO DAILY [facility] Last Admin: 12/09/16 09:03 Dose: 25 mg Zolpidem Tartrate (Ambien) 5 mg PO HS PRN PRN Reason: Insomnia Last Admin: 12/08/16 21:58 Dose: 5 mg - Labs Labs: 12/09/16 05:30 12/09/16 05:30 PT 13.5 SECONDS (9.6-11.2) H 12/06/16 12:17 INR 1.30 (0.92-1.08) H 12/06/16 12:17 APTT 41.4 SECONDS (23.3-32.5) H 12/06/16 12:17 - Constitutional Appears: Well, Non-toxic, No Acute Distress - Head Exam Head Exam: NORMAL INSPECTION, NORMOCEPHALIC - Eye Exam Eye Exam: Normal appearance - ENT Exam ENT Exam: Mucous Membranes Moist, Normal Exam - Neck Exam Neck Exam: Full ROM, Normal Inspection - Respiratory Exam Respiratory Exam: Clear to Ausculation Bilateral - Cardiovascular Exam Cardiovascular Exam: REGULAR RHYTHM, +S1, +S2, Murmur - GI/Abdominal Exam GI & Abdominal Exam: Soft - Rectal Exam Rectal Exam: Deferred - Extremities Exam Extremities Exam: Full ROM, Pedal Edema - Back Exam Back Exam: NORMAL INSPECTION - Neurological Exam Neurological Exam: Alert, Oriented x3 - Psychiatric Exam Psychiatric exam: Normal Affect, Normal Mood - Skin Skin Exam: Dry, Normal Color, Warm Assessment and Plan - Assessment and Plan (Free Text) Assessment: Dyspnea. Acute on chronic diastolic CHF. Pulmonary hypertension. Hypertension. Plan: Continue furosemide. Add aldactone. Continue antihypertensive medications. Stable for outpatient follow up. Will sign off.
== END 2016-12-09 15:30 | disposition home health service (06) | DRG 291 ==
LOC: H.ER 11:07 → H.ERHOLD 14:24 → H.TEL 18:25
PROVIDERS: ADMIT Student in an Organized Health Care Education/Training Program; ATTEND Student in an Organized Health Care Education/Training Program
DX: I13.0 Hypertensive heart and chronic kidney disease with heart failure and stage 1 through stage 4 chronic kidney disease, or unspecified chronic kidney disease (principal); I50.33 Acute on chronic diastolic (congestive) heart failure; N18.4 Chronic kidney disease, stage 4 (severe); D69.6 Thrombocytopenia, unspecified; E11.22 Type 2 diabetes mellitus with diabetic chronic kidney disease; I27.2 Other secondary pulmonary hypertension; I48.2 Chronic atrial fibrillation; J44.9 Chronic obstructive pulmonary disease, unspecified; D64.9 Anemia, unspecified; E78.00 Pure hypercholesterolemia, unspecified; E78.5 Hyperlipidemia, unspecified; H40.9 Unspecified glaucoma; M10.00 Idiopathic gout, unspecified site; I34.0 Nonrheumatic mitral (valve) insufficiency

== ENCOUNTER 2017-10-18 10:26 | Inpatient (IN) | payer OTHER ==
[2017-10-18 10:26] VITALS: BMI 32.1
[2017-10-18 12:01] LABS: URINE BILIRUBIN NEGATIVE (NEGATIVE); URINE BLOOD NEGATIVE (NEGATIVE); URINE CLARITY CLEAR (Clear); URINE COLOR YELLOW (YELLOW); URINE GLUCOSE (UA) NEG (Normal); URINE LEUKOCYTE ESTERASE NEG Leu/uL (Negative); URINE PROTEIN >=500 mg/dL (NEGATIVE)
--- NOTE | 2017-10-18 12:04 | ED PDOC ---
HPI: Abdomen Time Seen by Provider: 10/18/17 10:43 Chief Complaint (Nursing): Shortness Of Breath Chief Complaint (Provider): abdominal pain, and SOB History Per: Patient History/Exam Limitations: language barrier (translated by marcos) Onset/Duration Of Symptoms: Days (x2) Current Symptoms Are (Timing): Still Present Quality Of Discomfort: "Pain" Associated Symptoms: Fever (subjective), Other (abdominal pain, SOB ). denies: Nausea, Vomiting, Diarrhea, Constipation, Urinary Symptoms Last Bowel Movement: Yesterday (last night) Additional Complaint(s): Noe Diego is an 81 year old male, with a past medical history of HTN , CHF, A-Fib, hypercholesterolemia, diabetes and gastritis, who presents to the emergency department complaining of high blood pressure, abdominal pain, shortness of breath and subjective fever onset for x2 days. Patient reports the shortness of breath is due to abdominal discomfort. Patient did not take any medication for pain. Last bowel movement was last night. He denies any nausea, vomit, diarrhea or urinary symptoms. No further medical complaints. PMD: Mason Robertson Past Medical History Reviewed: Historical Data, Nursing Documentation, Vital Signs Vital Signs: Last Vital Signs Temp 99.3 F 10/18/17 18:06 Pulse 78 10/18/17 18:06 Resp 18 10/18/17 18:06 BP 171/89 H 10/18/17 18:06 Pulse Ox 95 10/18/17 18:51 - Medical History PMH: Arthritis, Atrial Fibrillation, CHF, Diabetes (type II), Gastritis, HTN, Hypercholesterolemia, Hyperlipidemia, Chronic Kidney Disease Denies: HIV - Surgical History Surgical History: Cholecystectomy, Hernia Repair - Family History Family History: States: Unknown Family Hx - Living Arrangements Living Arrangements: With Family - Social History Current smoker - smoking cessation education provided: No Alcohol: None Drugs: Denies - Home Medications Home Medications: Ambulatory Orders Medication Instructions Recorded Albuterol/Ipratropium [Duoneb 3 3 ml IH Q6H PRN 08/09/16 mg/0.5 mg (3 ml) UD] Dorzolamide 2% [Trusopt] 1 drop EACHEYE TID 08/09/16 Ergocalciferol (Vitamin D2) 50,000 unit PO QWK 08/09/16 [Vitamin D2] Folic Acid 1 mg PO DAILY 08/09/16 Gabapentin [Neurontin] 300 mg PO TID 08/09/16 Travoprost [Travatan Z] 1 drop EACHEYE HS 08/09/16 Docusate [Colace] 100 mg PO BID PRN #0 cap 08/14/16 Famotidine [Pepcid] 20 mg PO BID tab 08/14/16 Lidocaine 5% [Lidoderm] 1 ea TD DAILY patch 08/14/16 Zolpidem [Ambien] 5 mg PO HS PRN #0 08/14/16 traMADol [Ultram] 50 mg PO Q6 PRN #0 tab 08/14/16 Allopurinol [Zyloprim] 100 mg PO DAILY #30 12/09/16 Atenolol [Tenormin] 50 mg PO BID #30 12/09/16 Dabigatran [Pradaxa] 75 mg PO Q12H #60 12/09/16 Furosemide [Lasix] 40 mg PO Q12 #60 tab 12/09/16 Losartan [Cozaar] 100 mg PO DAILY #30 12/09/16 Simvastatin [Zocor] 20 mg PO QPM #30 12/09/16 Spironolactone [Aldactone] 25 mg PO DAILY #30 tab 12/09/16 amLODIPine [Norvasc] 5 mg PO DAILY #30 12/09/16 amLODIPine [Norvasc] 5 mg PO DAILY #30 tab 12/09/16 hydrALAZINE [Apresoline] 10 mg PO TID #90 tab 12/09/16 Dicyclomine [Bentyl] 20 mg PO QID PRN #10 tab 10/18/17 - Allergies Allergies/Adverse Reactions: Allergies Allergy/AdvReac Type Severity Reaction Status Date / Time No Known Allergies Allergy Verified 08/09/16 10:45 Review of Systems ROS Statement: Except As Marked, All Systems Reviewed And Found Negative Constitutional: Positive for: Fever (subjective) Respiratory: Positive for: Shortness of Breath Gastrointestinal: Positive for: Abdominal Pain. Negative for: Nausea, Vomiting , Diarrhea, Constipation Genitourinary Male: Negative for: Dysuria, Frequency, Incontinence, Hematuria Physical Exam - Reviewed Nursing Documentation Reviewed: Yes Vital Signs Reviewed: Yes - Physical Exam Appears: Positive for: Non-toxic, No Acute Distress Head Exam: Positive for: ATRAUMATIC, NORMAL INSPECTION, NORMOCEPHALIC Skin: Positive for: Normal Color, Warm, Dry Eye Exam: Positive for: Normal appearance, EOMI, PERRL Neck: Positive for: Painless ROM, Supple Cardiovascular/Chest: Positive for: Regular Rate, Rhythm. Negative for: Murmur Respiratory: Positive for: Normal Breath Sounds. Negative for: Respiratory Distress Gastrointestinal/Abdominal: Positive for: Tenderness (generalized ). Negative for: Guarding, Rebound Back: Positive for: Normal Inspection. Negative for: L CVA Tenderness, R CVA Tenderness, Vertebral Tenderness Extremity: Positive for: Normal ROM (upper and lower extremities). Negative for : Deformity Neurologic/Psych: Positive for: Alert, Oriented - Laboratory Results Result Diagrams: 10/18/17 12:00 10/18/17 12:00 - ECG O2 Sat by Pulse Oximetry: 95 (RA) Pulse Ox Interpretation: Normal - Physician Consult Information Time Consulting Physican Contacted: 18:40 Physician Contacted: Mason Robertson Medical Decision Making Medical Decision Making: Initial Impression: Abdominal pain Initial Plan: --Abd & Pelvis IV Contrast [CT] --EKG --CMP --Lipase --Urine dipstick --CBC w/ differential --PTT --PT --Chest portable [RAD] --Morphine 2mg IV --Urinalysis --Reevaluation 13:12 CXR FINDINGS: LUNGS: Pulmonary vascular congestion without focal/ discrete infiltrate. PLEURA: No significant pleural effusion identified, no pneumothorax apparent. CARDIOVASCULAR: Cardiomegaly, of pulmonary vascular congestion. OSSEOUS STRUCTURES: No significant abnormalities. VISUALIZED UPPER ABDOMEN: Normal. OTHER FINDINGS: None. IMPRESSION: Cardiomegaly/mild CHF a finding not seen on the prior study 12/06/2016. 13:12 Abdomen/Pelvis CT FINDINGS: LUNGS: Pulmonary vascular congestion without focal/ discrete infiltrate. PLEURA: No significant pleural effusion identified, no pneumothorax apparent. CARDIOVASCULAR: Cardiomegaly, of pulmonary vascular congestion. OSSEOUS STRUCTURES: No significant abnormalities. VISUALIZED UPPER ABDOMEN: Normal. OTHER FINDINGS: None. IMPRESSION: Cardiomegaly/mild CHF a finding not seen on the prior study 12/06/2016. 18:30 Pt eating meal without difficulty. Scribe Attestation: Documented by Rufino Sosa, acting as a scribe for Julia Carpenter MD Provider Scribe Attestation: All medical record entries made by the Scribe were at my direction and personally dictated by me. I have reviewed the chart and agree that the record accurately reflects my personal performance of the history, physical exam, medical decision making, and the department course for this patient. I have also personally directed, reviewed, and agree with the discharge instructions and disposition. Disposition - Clinical Impression Clinical Impression: Abdominal pain, CHF exacerbation - Patient ED Disposition Is Patient to be Admitted: Yes - Disposition Referrals: [facility] [Outside] Mason Robertson MD [Family Provider] - Disposition Time: 19:10 Condition: STABLE Prescriptions: Dicyclomine [Bentyl] 20 mg PO QID PRN #10 tab PRN Reason: Pain, Moderate (4-7) Instructions: Acute Abdomen (Belly Pain) Forms: [employer] (Japanese) Print Language: [place] CITIZ[place] - Pt Status Changed To: Hospital Disposition Of: Observation - POA Present On Arrival: None
[2017-10-18 12:13] LABS: BASO # 0.1 K/uL (0.0-0.2); BASO % 0.5 % (0.0-2.0); EOS # 0.1 K/uL (0.0-0.7); EOS % 0.8 % (0.0-4.0); LYMPH # 0.7 K/uL (1.0-4.3); LYMPH % 6.3 % (20.0-40.0); MEAN PLATELET VOLUME 9.5 fl (7.2-11.7); MONO # 0.9 K/uL (0.0-0.8); MONO % 7.8 % (0.0-10.0); NEUT # 9.9 K/uL (1.8-7.0); NEUT % 84.6 % (50.0-75.0); NRBC % 0.1 % (0.0-0.0); PLATELET COUNT 101 K/uL (130-400); RBC 4.01 Mil/uL (4.40-5.90); RED CELL DISTRIBUTION WIDTH 14.2 % (11.5-14.5); WHITE BLOOD COUNT 11.7 K/uL (4.8-10.8)
[2017-10-18 12:22] LABS: HEMOGLOBIN 13.6 g/dL (12.0-18.0)
[2017-10-18 12:27] LABS: ALB/GLOB RATIO 1.3 (1.0-2.1); ALBUMIN 3.9 g/dL (3.5-5.0); CALCIUM 9.9 mg/dL (8.4-10.2)
--- NOTE | 2017-10-18 13:14 | RAD ---
HISTORY: Abdominal pain. COMPARISON: 12/06/2016 FINDINGS: LUNGS: Pulmonary vascular congestion without focal/ discrete infiltrate. PLEURA: No significant pleural effusion identified, no pneumothorax apparent. CARDIOVASCULAR: Cardiomegaly, of pulmonary vascular congestion. OSSEOUS STRUCTURES: No significant abnormalities. VISUALIZED UPPER ABDOMEN: Normal. OTHER FINDINGS: None. IMPRESSION: Cardiomegaly/mild CHF a finding not seen on the prior study 12/06/2016.
[2017-10-18 13:53] LABS: INR 1.4 (0.9-1.2); PARTIAL THROMBOPLASTIN TIME 54.1 Seconds (25.6-37.1); PROTHROMBIN TIME 15.5 Seconds (9.8-13.1)
[2017-10-18 14:19] LABS: ANISOCYTOSIS SLIGHT; BANDS 2 % (0-2); LYMPHOCYTE 8 % (20-50); MONOCYTE 8 % (0-10); NEUTROPHIL 81 % (42-75); OVALOCYTES SLIGHT; PLATELET ESTIMATE NORMAL (NORMAL); REACTIVE LYMPHOCYTES 1 % (0-0); TOTAL CELLS COUNTED 100
--- NOTE | 2017-10-18 17:55 | CT ---
PROCEDURE: CT Abdomen and Pelvis without intravenous contrast HISTORY: Abdominal pain. No additional relevant clinical information regarding symptoms have been provided. COMPARISON: 08/09/2016 CT abdomen and pelvis TECHNIQUE: Unenhanced study. Neither oral nor intravenous contrast administered. Radiation dose: Total exam DLP = Total exam DLP = 877.20 mGy-cm. This CT exam was performed using one or more of the following dose reduction techniques: Automated exposure control, adjustment of the mA and/or kV according to patient size, and/or use of iterative reconstruction technique. FINDINGS: LOWER THORAX: Trace pleural effusions similar findings identified previously. LIVER: Unremarkable. No gross lesion or ductal dilatation. GALLBLADDER AND BILE DUCTS: Status post cholecystectomy. No abnormality is seen in the gallbladder fossa. PANCREAS: Unremarkable. No gross lesion or ductal dilatation. SPLEEN: Stable low-attenuation masses/ cysts in the spleen unchanged compared to prior studies. ADRENALS: Unremarkable. No mass. KIDNEYS AND URETERS: No significant interval change compared to the prior examination(s). . Stable appearance of right kidney. Stable, atrophic left kidney. VASCULATURE: Unremarkable. No aortic aneurysm. BOWEL: Diverticulosis without an acute inflammatory component or other associated pathologic process. APPENDIX: Unremarkable. Normal appendix. PERITONEUM: Unremarkable. No free fluid. No free air. LYMPH NODES: Unremarkable. No enlarged lymph nodes. BLADDER: Unremarkable. REPRODUCTIVE: Unremarkable. BONES: No acute fracture. Multilevel degenerative changes. Hemangioma again identified L2 vertebral body. OTHER FINDINGS: None. IMPRESSION: No acute findings related to/accounting for the clinical presentation. No significant interval change compared to the prior examination(s). Additional benign and/or incidental findings described above. Limitations of the current examination: Absence of Oral and intravenous contrast in this clinical setting of abdominal pain.
[2017-10-18 19:04] LABS: TROPONIN I 0.012 ng/mL (0.00-0.120)
[2017-10-18] MEDS ORDERED: Albuterol-Ipratrop 3 mg / 0.5 (3 ml) UD IH PRN (19:57)
[2017-10-18] MEDS ORDERED: Benzocaine/Menthol (Cepacol) Lozenge PO PRN (20:24)
[2017-10-18] MEDS ORDERED: guaiFENesin 200 mg/10 ml Syrup UD PO PRN (20:25)
--- NOTE | 2017-10-18 20:31 | CP.PCM.HP ---
History of Present Illness - History of Present Illness History of Present Illness: CC: CHF This is an 81 year old male with past medical history significant for essential hypertension, gastritis, Severe diastolic CHF, mitral regurgitation, moderate pulmonary hypertension, gout, CKD, chronic atrial fibrillation anticoagulated on Pradaxa, Type 2 DM, who presents to the ED with the complaint of shortness of breath, worsening pillow orthopena, and generalized abdominal pain beginning this morning. The patient was seen to be in acute CHF exacerbation with fluid overload. EKG shows atrial fibrillation and is nonischemic. As for his abdominal pain, it has improved since arrival in ED. Last BM was last night. CT abdomen/pelvis shows no acute pathology. Patient denies chest pain, shortness of breath, fevers, chills, nausea, vomiting, diarrhea, headache. All of the patient's and/or family's questions were answered at the bedside. the patient is to be placed on observation for cardiology consultation, diuresis, and further workup and management of CHF exacerbation ROS: Per HPI, all other systems reviewed negative by me PMH: AFib, DM2, HTN, CKD stage III, splenic lesion and Gout PSH: hernia repair FH: denies SH: denies tobacco, etoh, ivdu ALLERGIES: NKDA MEDICATIONS: reviewed and as below PMD: Mason Robertson Present on Admission - Present on Admission Any Indicators Present on Admission: Yes History of DVT/PE: No History of Uncontrolled Diabetes: Yes Review of Systems - Review of Systems Review of Systems: A 12 point review of systems was conducted and found to be negative other than what was mentioned in the HPI. Past Patient History - Infectious Disease Hx of Infectious Diseases: None - Tetanus Immunizations Tetanus Immunization: Unknown - Past Medical History & Family History Past Medical History?: Yes Past Family History: Reviewed and not pertinent - Past Social History Alcohol: None Drugs: Denies - CARDIAC Hx Atrial Fibrillation: Yes Hx Congestive Heart Failure: Yes Hx Hypercholesterolemia: Yes Hx Hypertension: Yes - PULMONARY Hx Respiratory Disorders: No - NEUROLOGICAL Hx Neurological Disorder: No - HEENT Hx HEENT Problems: Yes Hx Cataracts: Yes Hx Glaucoma: Yes - RENAL Hx Chronic Kidney Disease: Yes - ENDOCRINE/METABOLIC Hx Endocrine Disorders: Yes Hx Diabetes Mellitus Type 2: Yes - HEMATOLOGICAL/ONCOLOGICAL Hx Human Immunodeficiency Virus (HIV): No - INTEGUMENTARY Hx Dermatological Problems: No - MUSCULOSKELETAL/RHEUMATOLOGICAL Hx Arthritis: Yes - GASTROINTESTINAL Hx Gastritis: Yes - GENITOURINARY/GYNECOLOGICAL Hx Genitourinary Disorders: No - PSYCHIATRIC Hx Psychophysiologic Disorder: No Hx Substance Use: No - SURGICAL HISTORY Hx Cholecystectomy: Yes - ANESTHESIA Hx Anesthesia: Yes Hx Anesthesia Reactions: No Hx Malignant Hyperthermia: No Meds Home Medications: Home Medication List Medication Instructions Recorded Confirmed Type Dicyclomine [Bentyl] 20 mg PO QID PRN #10 tab 10/18/17 Rx Allergies/Adverse Reactions: Allergies Allergy/AdvReac Type Severity Reaction Status Date / Time No Known Allergies Allergy Verified 08/09/16 10:45 Physical Exam - Additional Findings Additional findings: Physical exam: Constitutional- cooperative, awake, alert, pleasant Head- NCAT, PERRL Eye- PERRL, EOMI. Left sided ptosis which patient reports is chronic ENT- normal exam, MMM. Neck- normal inspection, supple, no JVD Respiratory- CTAB, no wheezes rales rhonchi Cardiovascular- irregular rate and rhythm, +S1, +S2 no MRG GI/Abdominal- normal bowel sounds, soft, no mass, no hsm Skin- warm, dry Extremities Exam- normal capillary refill, normal inspection Neurological Exam- alert, awake, oriented Psych- normal mood, normal affect Results - Vital Signs Recent Vital Signs: Last Vital Signs Temp 99.3 F 10/18/17 18:06 Pulse 78 10/18/17 18:06 Resp 18 10/18/17 18:06 BP 171/89 H 10/18/17 18:06 Pulse Ox 95 10/18/17 19:10 - Labs Result Diagrams: 10/18/17 12:00 10/18/17 12:00 Labs: Laboratory Results - last 24 hr 10/18/17 10/18/17 10/18/17 10:47 11:51 12:00 WBC 11.7 H RBC 4.01 L Hgb 13.6 D Hct 41.3 MCV 103.0 H D MCH 34.0 H MCHC 33.0 RDW 14.2 Plt Count 101 L D MPV 9.5 Neut % (Auto) 84.6 H Lymph % (Auto) 6.[address] % (Auto) 7.8 Eos % (Auto) 0.8 Baso % (Auto) 0.5 Neut # (Auto) 9.9 H Lymph # (Auto) 0.[address] [place] # (Auto) 0.9 H Eos # (Auto) 0.1 Baso # (Auto) 0.1 Neutrophils % (Manual) 81 H Band Neutrophils % 2 Lymphocytes % (Manual) 8 L Reactive Lymphs % 1 H Monocytes % (Manual) 8 Platelet Estimate Normal Anisocytosis (manual) Slight Macrocytosis (manual) Slight Ovalocytes Slight PT INR APTT Sodium Potassium Chloride Carbon Dioxide Anion Gap BUN Creatinine Est GFR ( Amer) Est GFR (Non-Af Amer) POC Glucose (mg/dL) 100 Random Glucose Calcium Total Bilirubin AST ALT Alkaline Phosphatase Troponin I NT-Pro-B Natriuret Pep Total Protein Albumin Globulin Albumin/Globulin Ratio Lipase Urine Color Yellow Urine Clarity Clear Urine pH 7.0 Ur Specific [place] 1.013 Urine Protein >=500 Urine Glucose (UA) Neg Urine Ketones Negative Urine Blood Negative Urine Nitrate Negative Urine Bilirubin Negative Urine Urobilinogen 2.0 Ur Leukocyte Esterase Neg Urine RBC (Auto) 3 Urine Microscopic WBC < 1 10/18/17 10/18/17 10/18/17 12:00 12:00 13:30 WBC RBC Hgb Hct MCV MCH MCHC RDW Plt Count MPV Neut % (Auto) Lymph % (Auto) [place] % (Auto) Eos % (Auto) Baso % (Auto) Neut # (Auto) Lymph # (Auto) [place] # (Auto) Eos # (Auto) Baso # (Auto) Neutrophils % (Manual) Band Neutrophils % Lymphocytes % (Manual) Reactive Lymphs % Monocytes % (Manual) Platelet Estimate Anisocytosis (manual) Macrocytosis (manual) Ovalocytes PT 15.5 H INR 1.4 H APTT 54.1 H Sodium 146 Potassium 4.4 Chloride 106 Carbon Dioxide 21 L Anion Gap 23 H BUN 29 H Creatinine 2.2 H Est GFR ( Amer) 35 Est GFR (Non-Af Amer) 29 POC Glucose (mg/dL) Random Glucose 106 Calcium 9.9 Total Bilirubin 2.0 H AST 50 ALT 56 Alkaline Phosphatase 87 Troponin I NT-Pro-B Natriuret Pep Total Protein 7.0 Albumin 3.9 Globulin 3.1 Albumin/Globulin Ratio 1.3 Lipase 60 Urine Color Urine Clarity Urine pH Ur Specific [place] Urine Protein Urine Glucose (UA) Urine Ketones Urine Blood Urine Nitrate Urine Bilirubin Urine Urobilinogen Ur Leukocyte Esterase Urine RBC (Auto) Urine Microscopic WBC 10/18/17 10/18/17 18:24 18:33 WBC RBC Hgb Hct MCV MCH MCHC RDW Plt Count MPV Neut % (Auto) Lymph % (Auto) [place] % (Auto) Eos % (Auto) Baso % (Auto) Neut # (Auto) Lymph # (Auto) [place] # (Auto) Eos # (Auto) Baso # (Auto) Neutrophils % (Manual) Band Neutrophils % Lymphocytes % (Manual) Reactive Lymphs % Monocytes % (Manual) Platelet Estimate Anisocytosis (manual) Macrocytosis (manual) Ovalocytes PT INR APTT Sodium Potassium Chloride Carbon Dioxide Anion Gap BUN Creatinine Est GFR ( Amer) Est GFR (Non-Af Amer) POC Glucose (mg/dL) 67 Random Glucose Calcium Total Bilirubin AST ALT Alkaline Phosphatase Troponin I 0.0120 NT-Pro-B Natriuret Pep 7130 H Total Protein Albumin Globulin Albumin/Globulin Ratio Lipase Urine Color Urine Clarity Urine pH Ur Specific [place] Urine Protein Urine Glucose (UA) Urine Ketones Urine Blood Urine Nitrate Urine Bilirubin Urine Urobilinogen Ur Leukocyte Esterase Urine RBC (Auto) Urine Microscopic WBC Assessment & Plan - Assessment and Plan (Free Text) Plan: This is an 81 year old male with past medical history significant for essential hypertension, gastritis, Severe diastolic CHF, mitral regurgitation, moderate pulmonary hypertension, gout, CKD, chronic atrial fibrillation anticoagulated on Pradaxa, Type 2 DM, admitted for acute on chronic diastolic CHF exacerbation and abdominal pain (1) Diastolic CHF, acute on chronic, Admitted for fatigue, lower extremity edema and increased SOB elevated pro BNP Dr. Mcadams on consultation for cardiology Most recent ECHO: mod MR, mild to mod Pulm HTN cont Lasix 60 IV Q12, BB, Cozaar, Spironolactone Na restriction monitor I/O monitor BMP (2) Abdominal cramping, improved, uncertain etiology, could be gastroparesis no acute pathology on CT scan improved with normal abdominal exam bentyl PRN No signs of infection (2) Hypertension Cont Atenolol, Cozaar, Norvasc, Hydralazine elevated, reassess after diuresis (3) Atrial fibrillation, chronic, rate controlled cont renally dosed Pradaxa cont Atenolol (4) CKD (chronic kidney disease) stage 4, GFR 15-29 ml/min at baseline Cr cont Cozaar stable (5) DM2 (diabetes mellitus, type 2) accucheck ISS protocol (6) Gouty arthritis cont Allopurinol (7) Gastritis cont pepcid (8) DVT prophylaxis Pt on Pradaxa Decision To Admit - Pt Status Changed To: Hospital Disposition Of: Observation - . Bed Request Type: Telemetry Admitting Physician: Nav Turcios
[2017-10-18] MEDS: Latanoprost 0.005% Opht SOUTION OU SCH (23:49)
[2017-10-19 06:16] LABS: HEMOGLOBIN 13.7 g/dL (12.0-18.0); MEAN CELL VOLUME 103.1 fl (80.0-94.0); MEAN CORPUSCULAR HEMOGLOBIN 34.4 pg (27.0-31.0); MEAN CORPUSCULAR HGB CONC 33.4 g/dL (33.0-37.0); RBC 3.97 Mil/uL (4.40-5.90); RED CELL DISTRIBUTION WIDTH 13.9 % (11.5-14.5); WHITE BLOOD COUNT 10.3 K/uL (4.8-10.8)
[2017-10-19 06:20] LABS: CALCIUM 9.2 mg/dL (8.4-10.2)
[2017-10-19 06:21] LABS: TROPONIN I 0.039 ng/mL (0.00-0.120)
[2017-10-19] MEDS: Dorzolamide 2% Ophth Soln OU SCH ×3 (08:21→16:25)
[2017-10-19] MEDS: Insulin Lispro (humaLOG) 100 Units/ml Inj SC SCH ×5 (08:23→23:05)
[2017-10-19] MEDS: Lidocaine 5% Patch TD SCH (08:25)
--- NOTE | 2017-10-19 09:23 | CARD ---
APPROVED REPORT EKG Measurement Heart [id number] <Conclusion> A Fib Left axis deviation Right bundle branch block Inferior infarct, age undetermined Abnormal ECG
--- NOTE | 2017-10-19 11:30 | CP.PCM.CON ---
History of Present Illness - History of Present Illness History of Present Illness: This is an 81 year old male with past medical history significant for essential hypertension, gastritis, mitral regurgitation, moderate pulmonary hypertension, CKD, chronic atrial fibrillation anticoagulated on Pradaxa, Type 2 DM, who presents to the ED with the complaint of shortness of breath, worsening pillow orthopena, increasing pedal edema and generalized abdominal pain beginning this morning. 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 MR PH Conc Hypertrophy LV Past Patient History - Infectious Disease Hx of Infectious Diseases: None - Tetanus Immunizations Tetanus Immunization: Unknown - Past Medical History & Family History Past Medical History?: Yes - Past Social History Smoking Status: Never Smoked - CARDIAC Hx Cardiac Disorders: Yes Hx Atrial Fibrillation: Yes Hx Congestive Heart Failure: Yes Hx Hypercholesterolemia: Yes Hx Hypertension: Yes - PULMONARY Hx Respiratory Disorders: No - NEUROLOGICAL Hx Neurological Disorder: No - HEENT Hx HEENT Problems: Yes Hx Cataracts: Yes Hx Glaucoma: Yes - RENAL Hx Chronic Kidney Disease: Yes Hx Renal Failure: Yes - ENDOCRINE/METABOLIC Hx Endocrine Disorders: Yes Hx Diabetes Mellitus Type 2: Yes - HEMATOLOGICAL/ONCOLOGICAL Hx Blood Disorders: No Hx AIDS: No Hx Human Immunodeficiency Virus (HIV): No - INTEGUMENTARY Hx Dermatological Problems: No - MUSCULOSKELETAL/RHEUMATOLOGICAL Hx Musculoskeletal Disorders: Yes Hx Arthritis: Yes Hx Falls: Yes - GASTROINTESTINAL Hx Gastrointestinal Disorders: Yes Hx Gastritis: Yes - GENITOURINARY/GYNECOLOGICAL Hx Genitourinary Disorders: No - PSYCHIATRIC Hx Psychophysiologic Disorder: No Hx Substance Use: No - SURGICAL HISTORY Hx Surgeries: Yes Hx Cholecystectomy: Yes Hx Herniorrhaphy: Yes Other/Comment: R Knee Surgery - ANESTHESIA Hx Anesthesia: Yes Hx Anesthesia Reactions: No Hx Malignant Hyperthermia: No Meds Allergies/Adverse Reactions: Allergies Allergy/AdvReac Type Severity Reaction Status Date / Time No Known Allergies Allergy Verified 08/09/16 10:45 - Medications Medications: Current Medications Acetaminophen (Tylenol 325mg Tab) 650 mg PO Q6 PRN PRN Reason: Pain, Mild (1-3) Albuterol/Ipratropium (Duoneb 3 Mg/0.5 Mg (3 Ml) Ud) 3 ml IH Q6H PRN PRN Reason: Shortness of Breath Allopurinol (Zyloprim) 100 mg PO DAILY [facility] Last Admin: 10/19/17 08:24 Dose: 100 mg Amlodipine Besylate (Norvasc) 5 mg PO DAILY [facility] Last Admin: 10/19/17 08:24 Dose: 5 mg Atenolol (Tenormin) 50 mg PO BID [facility] Last Admin: 10/19/17 08:23 Dose: 50 mg Atorvastatin Calcium (Lipitor) 10 mg PO QPM [facility] Benzocaine/Menthol (Cepacol Sore Throat) 1 alfred PO Q3 PRN PRN Reason: Sore Throat Dabigatran (Pradaxa) 75 mg PO Q12H [facility] PRN Reason: Protocol Last Admin: 10/19/17 08:22 Dose: 75 mg Dicyclomine HCl (Bentyl) 20 mg PO QID PRN PRN Reason: cramping Docusate Sodium (Colace) 100 mg PO BID PRN PRN Reason: Constipation Dorzolamide HCl (Trusopt) 1 drop OU TID [facility] Last Admin: 10/19/17 08:21 Dose: 1 drop Famotidine (Pepcid) 20 mg PO BID [facility] Last Admin: 10/19/17 08:24 Dose: 20 mg Folic Acid (Folic Acid) 1 mg PO DAILY [facility] Last Admin: 10/19/17 08:22 Dose: 1 mg Furosemide (Lasix) 60 mg IVP Q12H [facility] Last Admin: 10/19/17 08:21 Dose: 60 mg Gabapentin (Neurontin) 300 mg PO TID [facility] Last Admin: 10/19/17 08:24 Dose: 300 mg Guaifenesin (Robitussin) 200 mg PO Q6 PRN PRN Reason: Cough Hydralazine HCl (Apresoline) 10 mg PO TID [facility] Insulin Human Lispro (Humalog) 0 units SC ACCU-CHECK [facility] PRN Reason: Protocol Last Admin: 10/19/17 08:23 Dose: Not Given Latanoprost (Xalatan Opht) 1 drop OU HS [facility] Last Admin: 10/18/17 23:49 Dose: 1 drop Lidocaine (Lidoderm) 1 ea TD DAILY [facility] Last Admin: 10/19/17 08:25 Dose: 1 ea Losartan Potassium (Cozaar) 100 mg PO DAILY [facility] Last Admin: 10/19/17 08:22 Dose: 100 mg Spironolactone (Aldactone) 25 mg PO DAILY [facility] Last Admin: 10/19/17 08:22 Dose: 25 mg Tramadol HCl (Ultram) 50 mg PO Q6 PRN PRN Reason: Pain, severe (8-10) Zolpidem Tartrate (Ambien) 5 mg PO HS PRN PRN Reason: Insomnia Last Admin: 10/18/17 23:54 Dose: 5 mg Results - Vital Signs Recent Vital Signs: Last Vital Signs Temp 98 F 10/19/17 07:51 Pulse 81 10/19/17 08:24 Resp 18 10/19/17 07:51 BP 152/89 H 10/19/17 08:24 Pulse Ox 99 10/19/17 07:51 - Labs Result Diagrams: 10/19/17 04:25 10/19/17 04:25 Labs: Laboratory Results - last 24 hr 10/18/17 10/18/17 10/18/17 11:51 12:00 12:00 WBC 11.7 H RBC 4.01 L Hgb 13.6 D Hct 41.3 MCV 103.0 H D MCH 34.0 H MCHC 33.0 RDW 14.2 Plt Count 101 L D MPV 9.5 Neut % (Auto) 84.6 H Lymph % (Auto) 6.3 L P[place] % (Auto) 7.8 Eos % (Auto) 0.8 Baso % (Auto) 0.5 Neut # (Auto) 9.9 H Lymph # (Auto) 0.7 L [place] # (Auto) 0.9 H Eos # (Auto) 0.1 Baso # (Auto) 0.1 Neutrophils % (Manual) 81 H Band Neutrophils % 2 Lymphocytes % (Manual) 8 L Reactive Lymphs % 1 H Monocytes % (Manual) 8 Platelet Estimate Normal Anisocytosis (manual) Slight Macrocytosis (manual) Slight Ovalocytes Slight PT INR APTT Sodium 146 Potassium 4.4 Chloride 106 Carbon Dioxide 21 L Anion Gap 23 H BUN 29 H Creatinine 2.2 H Est GFR ( Amer) 35 Est GFR (Non-Af Amer) 29 POC Glucose (mg/dL) Random Glucose 106 Calcium 9.9 Total Bilirubin 2.0 H AST 50 ALT 56 Alkaline Phosphatase 87 Troponin I NT-Pro-B Natriuret Pep Total Protein 7.0 Albumin 3.9 Globulin 3.1 Albumin/Globulin Ratio 1.3 Lipase 60 Urine Color Yellow Urine Clarity Clear Urine pH 7.0 Ur Specific [place] 1.013 Urine Protein >=500 Urine Glucose (UA) Neg Urine Ketones Negative Urine Blood Negative Urine Nitrate Negative Urine Bilirubin Negative Urine Urobilinogen 2.0 Ur Leukocyte Esterase Neg Urine RBC (Auto) 3 Urine Microscopic WBC < 1 10/18/17 10/18/17 10/18/17 12:00 13:30 18:24 WBC RBC Hgb Hct MCV MCH MCHC RDW Plt Count MPV Neut % (Auto) Lymph % (Auto) Pett[place] % (Auto) Eos % (Auto) Baso % (Auto) Neut # (Auto) Lymph # (Auto) Pettis # (Auto) Eos # (Auto) Baso # (Auto) Neutrophils % (Manual) Band Neutrophils % Lymphocytes % (Manual) Reactive Lymphs % Monocytes % (Manual) Platelet Estimate Anisocytosis (manual) Macrocytosis (manual) Ovalocytes PT 15.5 H INR 1.4 H APTT 54.1 H Sodium Potassium Chloride Carbon Dioxide Anion Gap BUN Creatinine Est GFR ( Amer) Est GFR (Non-Af Amer) POC Glucose (mg/dL) 67 Random Glucose Calcium Total Bilirubin AST ALT Alkaline Phosphatase Troponin I NT-Pro-B Natriuret Pep Total Protein Albumin Globulin Albumin/Globulin Ratio Lipase Urine Color Urine Clarity Urine pH Ur Specific [place] Urine Protein Urine Glucose (UA) Urine Ketones Urine Blood Urine Nitrate Urine Bilirubin Urine Urobilinogen Ur Leukocyte Esterase Urine RBC (Auto) Urine Microscopic WBC 10/18/17 10/19/17 10/19/17 18:33 04:25 04:25 WBC 10.3 RBC 3.97 L Hgb 13.7 Hct 41.0 MCV 103.1 H MCH 34.4 H MCHC 33.4 RDW 13.9 Plt Count 96 L MPV Neut % (Auto) Lymph % (Auto) [place] % (Auto) Eos % (Auto) Baso % (Auto) Neut # (Auto) Lymph # (Auto) [place] # (Auto) Eos # (Auto) Baso # (Auto) Neutrophils % (Manual) Band Neutrophils % Lymphocytes % (Manual) Reactive Lymphs % Monocytes % (Manual) Platelet Estimate Anisocytosis (manual) Macrocytosis (manual) Ovalocytes PT INR APTT Sodium 145 Potassium 3.7 Chloride 102 Carbon Dioxide 25 Anion Gap 22 H BUN 31 H Creatinine 2.4 H Est GFR ( Amer) 32 Est GFR (Non-Af Amer) 26 POC Glucose (mg/dL) Random Glucose 84 Calcium 9.2 Total Bilirubin AST ALT Alkaline Phosphatase Troponin I 0.0120 0.0390 NT-Pro-B Natriuret Pep 7130 H Total Protein Albumin Globulin Albumin/Globulin Ratio Lipase Urine Color Urine Clarity Urine pH Ur Specific [place] Urine Protein Urine Glucose (UA) Urine Ketones Urine Blood Urine Nitrate Urine Bilirubin Urine Urobilinogen Ur Leukocyte Esterase Urine RBC (Auto) Urine Microscopic WBC 10/19/17 05:18 WBC RBC Hgb Hct MCV MCH MCHC RDW Plt Count MPV Neut % (Auto) Lymph % (Auto) [place] % (Auto) Eos % (Auto) Baso % (Auto) Neut # (Auto) Lymph # (Auto) [place] # (Auto) Eos # (Auto) Baso # (Auto) Neutrophils % (Manual) Band Neutrophils % Lymphocytes % (Manual) Reactive Lymphs % Monocytes % (Manual) Platelet Estimate Anisocytosis (manual) Macrocytosis (manual) Ovalocytes PT INR APTT Sodium Potassium Chloride Carbon Dioxide Anion Gap BUN Creatinine Est GFR ( Amer) Est GFR (Non-Af Amer) POC Glucose (mg/dL) 84 Random Glucose Calcium Total Bilirubin AST ALT Alkaline Phosphatase Troponin I NT-Pro-B Natriuret Pep Total Protein Albumin Globulin Albumin/Globulin Ratio Lipase Urine Color Urine Clarity Urine pH Ur Specific [place] Urine Protein Urine Glucose (UA) Urine Ketones Urine Blood Urine Nitrate Urine Bilirubin Urine Urobilinogen Ur Leukocyte Esterase Urine RBC (Auto) Urine Microscopic WBC Assessment & Plan (1) Acute on chronic systolic congestive heart failure Assessment and Plan: I agree with present therapy Status: Acute (2) CKD (chronic kidney disease) stage 4, GFR 15-29 ml/min Status: Chronic (3) DM2 (diabetes mellitus, type 2) Status: Chronic (4) Gouty arthritis Status: Chronic (5) Hypertension Status: Chronic (6) Splenic lesion Status: Chronic (7) Metastatic disease Status: Suspected
--- NOTE | 2017-10-19 12:59 | CP.PCM.PN ---
Subjective - Date & Time of Evaluation Date of Evaluation: 10/19/17 Time of Evaluation: 10:00 - Subjective Subjective: Patient was seen and examined at bedside. He reports that he is feeling a little better. still with intermittent cough. Reports breathing is a little easier. He reports generalized weakness still however. Objective - Vital Signs/Intake and Output Vital Signs (last 24 hours): Temp Pulse Resp BP Pulse Ox 98.2 F 80 18 156/80 H 95 10/19/17 12:03 10/19/17 12:25 10/19/17 12:03 10/19/17 12:25 10/19/17 12:03 Intake and Output: 10/19/17 10/19/17 06:59 18:59 Output Total 2250 Balance -2250 - Medications Medications: Current Medications Acetaminophen (Tylenol 325mg Tab) 650 mg PO Q6 PRN PRN Reason: Pain, Mild (1-3) Albuterol/Ipratropium (Duoneb 3 Mg/0.5 Mg (3 Ml) Ud) 3 ml IH Q6H PRN PRN Reason: Shortness of Breath Allopurinol (Zyloprim) 100 mg PO DAILY [facility] Last Admin: 10/19/17 08:24 Dose: 100 mg Amlodipine Besylate (Norvasc) 5 mg PO DAILY [facility] Last Admin: 10/19/17 08:24 Dose: 5 mg Atenolol (Tenormin) 50 mg PO BID [facility] Last Admin: 10/19/17 08:23 Dose: 50 mg Atorvastatin Calcium (Lipitor) 10 mg PO QPM [facility] Benzocaine/Menthol (Cepacol Sore Throat) 1 alfred PO Q3 PRN PRN Reason: Sore Throat Last Admin: 10/19/17 12:27 Dose: 1 alfred Dabigatran (Pradaxa) 75 mg PO Q12H [facility] PRN Reason: Protocol Last Admin: 10/19/17 08:22 Dose: 75 mg Dicyclomine HCl (Bentyl) 20 mg PO QID PRN PRN Reason: cramping Docusate Sodium (Colace) 100 mg PO BID PRN PRN Reason: Constipation Dorzolamide HCl (Trusopt) 1 drop OU TID [facility] Last Admin: 10/19/17 12:29 Dose: 1 drop Famotidine (Pepcid) 20 mg PO BID [facility] Last Admin: 10/19/17 08:24 Dose: 20 mg Folic Acid (Folic Acid) 1 mg PO DAILY [facility] Last Admin: 10/19/17 08:22 Dose: 1 mg Furosemide (Lasix) 60 mg IVP Q12H [facility] Last Admin: 10/19/17 08:21 Dose: 60 mg Gabapentin (Neurontin) 300 mg PO TID [facility] Last Admin: 10/19/17 12:28 Dose: 300 mg Guaifenesin (Robitussin) 200 mg PO Q6 PRN PRN Reason: Cough Hydralazine HCl (Apresoline) 10 mg PO TID [facility] Last Admin: 10/19/17 12:25 Dose: 10 mg Insulin Human Lispro (Humalog) 0 units SC ACCU-CHECK [facility] PRN Reason: Protocol Last Admin: 10/19/17 12:26 Dose: Not Given Latanoprost (Xalatan Opht) 1 drop OU HS [facility] Last Admin: 10/18/17 23:49 Dose: 1 drop Lidocaine (Lidoderm) 1 ea TD DAILY [facility] Last Admin: 10/19/17 08:25 Dose: 1 ea Losartan Potassium (Cozaar) 100 mg PO DAILY [facility] Last Admin: 10/19/17 08:22 Dose: 100 mg Potassium Chloride (K-Dur 20 Meq Er Tab) 20 meq PO DAILY [facility] Spironolactone (Aldactone) 25 mg PO DAILY [facility] Last Admin: 10/19/17 08:22 Dose: 25 mg Tramadol HCl (Ultram) 50 mg PO Q6 PRN PRN Reason: Pain, severe (8-10) Zolpidem Tartrate (Ambien) 5 mg PO HS PRN PRN Reason: Insomnia Last Admin: 10/18/17 23:54 Dose: 5 mg - Labs Labs: 10/19/17 04:25 10/19/17 04:25 PT 15.5 Seconds (9.8-13.1) H 10/18/17 13:30 INR 1.4 (0.9-1.2) H 10/18/17 13:30 APTT 54.1 Seconds (25.6-37.1) H 10/18/17 13:30 - Additional Findings Additional findings: Physical exam: Constitutional- cooperative, awake, alert, pleasant Head- NCAT, PERRL Eye- PERRL, EOMI. Left sided ptosis which patient reports is chronic ENT- normal exam, MMM. Neck- normal inspection, supple, no JVD Respiratory- CTAB, bibasilar rales, no wheezing, no rhonchi Cardiovascular- irregular rate and rhythm, +S1, +S2 no MRG GI/Abdominal- normal bowel sounds, soft, no mass, no hsm Skin- warm, dry Extremities Exam- +2 bilateral lower extremity edema. normal capillary refill, normal inspection Neurological Exam- alert, awake, oriented Psych- normal mood, normal affect Assessment and Plan - Assessment and Plan (Free Text) Plan: This is an 81 year old male with past medical history significant for essential hypertension, gastritis, Severe diastolic CHF, mitral regurgitation, moderate pulmonary hypertension, gout, CKD, chronic atrial fibrillation anticoagulated on Pradaxa, Type 2 DM, admitted for acute on chronic diastolic CHF exacerbation and abdominal pain (1) Diastolic CHF, acute on chronic, also with concentric LV hypertrophy Admitted for fatigue, lower extremity edema and increased SOB elevated pro BNP Dr. Beaver on consultation for cardiology, agrees with current management Most recent ECHO: mod MR, mild to mod Pulm HTN; awaiting final echocardiogram report. cont Lasix 60 IV Q12, BB, Cozaar, Spironolactone Na restriction monitor I/O monitor BMP (2) Abdominal cramping, improved, uncertain etiology, could be gastroparesis no acute pathology on CT scan improved with normal abdominal exam bentyl PRN No signs of infection (2) Hypertension Cont Atenolol, Cozaar, Norvasc, Hydralazine elevated, reassess after diuresis (3) Atrial fibrillation, chronic, rate controlled cont renally dosed Pradaxa cont Atenolol (4) CKD (chronic kidney disease) stage 4, GFR 15-29 ml/min at baseline Cr cont Cozaar stable (5) DM2 (diabetes mellitus, type 2) accucheck ISS protocol (6) Gouty arthritis cont Allopurinol (7) Gastritis cont pepcid (8) DVT prophylaxis Pt on Pradaxa
[2017-10-19] MEDS: Potassium Chloride 20 mEq ER Tab PO SCH (16:21)
[2017-10-19] MEDS: Latanoprost 0.005% Opht SOUTION OU SCH (23:04)
[2017-10-20 06:58] LABS: HEMOGLOBIN 14.2 g/dL (12.0-18.0); MEAN CELL VOLUME 102.9 fl (80.0-94.0); MEAN CORPUSCULAR HEMOGLOBIN 34.2 pg (27.0-31.0); MEAN CORPUSCULAR HGB CONC 33.2 g/dL (33.0-37.0); RBC 4.16 Mil/uL (4.40-5.90); RED CELL DISTRIBUTION WIDTH 13.9 % (11.5-14.5); WHITE BLOOD COUNT 11.3 K/uL (4.8-10.8)
[2017-10-20 07:26] LABS: CALCIUM 9.2 mg/dL (8.4-10.2)
[2017-10-20 07:48] VITALS: RESP 18
--- NOTE | 2017-10-20 08:43 | CARD ---
APPROVED REPORT EXAM: Two-dimensional and M-mode echocardiogram with Doppler and color Doppler. Other Information Quality : GoodRhythm : PVC's INDICATION Congestive Heart Failure 2D DIMENSIONS IVSd1.37 (0.7-1.1cm)LVDd3.89 (3.9-5.9cm) LVOT Diameter2.14 (1.8-2.4cm)PWd1.91 (0.7-1.1cm) IVSs1.55 (0.8-1.2cm)LVDs3.84 (2.5-4.0cm) FS (%) 1.5 %PWs1.81 (0.8-1.2cm) M-Mode DIMENSIONS Left Atrium (MM)6.15 (2.5-4.0cm)IVSd1.29 (0.7-1.1cm) Aortic Root3.31 (2.2-3.7cm)LVDd5.53 (4.0-5.6cm) Aortic Cusp Exc.1.95 (1.5-2.0cm)PWd1.09 (0.7-1.1cm) IVSs1.46 cmFS (%) 34 % LVDs3.67 (2.0-3.8cm)PWs1.52 cm Mitral Valve E/A ratio0.0 TDI E/Lateral E'0.0E/Medial E'0.0 Tricuspid Valve TR Peak [id number] [id number] Peak Gr.71mmHg [id number] LEFT VENTRICLE The left ventricle is normal size. There is normal left ventricular wall thickness. Left ventricle systolic function is normal. The Ejection Fraction is 60-65%. There is normal LV segmental wall motion. Pt has A Fib RIGHT VENTRICLE The right ventricle is at upper limits of normal size. There is normal right ventricular wall thickness. The right ventricular systolic function is normal. ATRIA The left atrium is moderately dilated. The right atrium is moderately dilated. AORTIC VALVE The aortic valve is mildly sclerotic. No aortic regurgitation is present. There is no aortic valvular stenosis. MITRAL VALVE The mitral valve is normal in structure. There is no evidence of mitral valve prolapse. There is no mitral valve stenosis. Mitral regurgitation is moderate. TRICUSPID VALVE The tricuspid valve is normal in structure. There is mild tricuspid regurgitation. Right ventricular systolic pressure is estimated at 88 mmHg. There is severe pulmonary hypertension. PULMONIC VALVE The pulmonary valve is normal in structure. There is no pulmonic valvular regurgitation. GREAT VESSELS The aortic root is normal in size. The IVC collapses <50% with inspiration. PERICARDIAL EFFUSION There is a small circumferential pericardial effusion. <Conclusion> There is normal left ventricular wall thickness. There is normal LV segmental wall motion. Left ventricle systolic function is normal. The Ejection Fraction is 60-65%. The left atrium is moderately dilated. The right atrium is moderately dilated. Mitral regurgitation is moderate. There is mild tricuspid regurgitation. There is severe pulmonary hypertension.
[2017-10-20] MEDS: Potassium Chloride 20 mEq ER Tab PO SCH (09:31)
[2017-10-20] MEDS: Lidocaine 5% Patch TD SCH (09:32)
[2017-10-20] MEDS: Dorzolamide 2% Ophth Soln OU SCH ×2 (09:35→12:30)
--- NOTE | 2017-10-20 10:43 | CARD ---
APPROVED REPORT EKG Measurement Heart [id number] <Conclusion> Atrial fibrillation with premature ventricular or aberrantly conducted complexes Left axis deviation Incomplete right bundle branch block Inferior infarct, age undetermined Abnormal ECG
[2017-10-20 12:05] VITALS: BP 129/76; PULSE 74; TEMP 98.3; O2SAT 95
[2017-10-20] MEDS: Insulin Lispro (humaLOG) 100 Units/ml Inj SC SCH (12:29)
--- NOTE | 2017-10-20 14:44 | CP.PCM.DIS ---
Provider - Provider Date of Admission: 10/19/17 12:44 Attending physician: Deven Turcios DO Primary care physician: PMD: Dr. Robertson Consults: Dr. Beaver, cardiology Time Spent in preparation of Discharge (in minutes): 25 Hospital Course - Lab Results Lab Results: Most Recent Lab Values WBC 11.3 K/uL (4.8-10.8) H 10/20/17 05:30 RBC 4.16 Mil/uL (4.40-5.90) L 10/20/17 05:30 Hgb 14.2 g/dL (12.0-18.0) 10/20/17 05:30 Hct 42.9 % (35.0-51.0) 10/20/17 05:30 MCV 102.9 fl (80.0-94.0) H 10/20/17 05:30 MCH 34.2 pg (27.0-31.0) H 10/20/17 05:30 MCHC 33.2 g/dL (33.0-37.0) 10/20/17 05:30 RDW 13.9 % (11.5-14.5) 10/20/17 05:30 Plt Count 98 K/uL (130-400) L 10/20/17 05:30 MPV 9.5 fl (7.2-11.7) 10/18/17 12:00 Neut % (Auto) 84.6 % (50.0-75.0) H 10/18/17 12:00 Lymph % (Auto) 6.3 % (20.0-40.0) L 10/18/17 12:00 [place] % (Auto) 7.8 % (0.0-10.0) 10/18/17 12:00 Eos % (Auto) 0.8 % (0.0-4.0) 10/18/17 12:00 Baso % (Auto) 0.5 % (0.0-2.0) 10/18/17 12:00 Neut # (Auto) 9.9 K/uL (1.8-7.0) H 10/18/17 12:00 Lymph # (Auto) 0.7 K/uL (1.0-4.3) L 10/18/17 12:00 Allen # (Auto) 0.9 K/uL (0.0-0.8) H 10/18/17 12:00 Eos # (Auto) 0.1 K/uL (0.0-0.7) 10/18/17 12:00 Baso # (Auto) 0.1 K/uL (0.0-0.2) 10/18/17 12:00 Neutrophils % (Manual) 81 % (42-75) H 10/18/17 12:00 Band Neutrophils % 2 % (0-2) 10/18/17 12:00 Lymphocytes % (Manual) 8 % (20-50) L 10/18/17 12:00 Reactive Lymphs % 1 % (0-0) H 10/18/17 12:00 Monocytes % (Manual) 8 % (0-10) 10/18/17 12:00 Platelet Estimate Normal (NORMAL) 10/18/17 12:00 Anisocytosis (manual) Slight 10/18/17 12:00 Macrocytosis (manual) Slight 10/18/17 12:00 Ovalocytes Slight 10/18/17 12:00 PT 15.5 Seconds (9.8-13.1) H 10/18/17 13:30 INR 1.4 (0.9-1.2) H 10/18/17 13:30 APTT 54.1 Seconds (25.6-37.1) H 10/18/17 13:30 Sodium 145 mmol/l (132-148) 10/20/17 05:30 Potassium 3.4 MMOL/L (3.6-5.0) L 10/20/17 05:30 Chloride 100 mmol/L (98-107) 10/20/17 05:30 Carbon Dioxide 26 mmol/L (22-30) 10/20/17 05:30 Anion Gap 22 (10-20) H 10/20/17 05:30 BUN 41 mg/dl (9-20) H 10/20/17 05:30 Creatinine 2.7 mg/dl (0.8-1.5) H 10/20/17 05:30 Est GFR ( Amer) 28 10/20/17 05:30 Est GFR (Non-Af Amer) 23 10/20/17 05:30 POC Glucose (mg/dL) 215 mg/dL (65-110) H 10/20/17 10:54 Random Glucose 95 mg/dL (75-110) 10/20/17 05:30 Calcium 9.2 mg/dL (8.4-10.2) 10/20/17 05:30 Total Bilirubin 2.0 mg/dl (0.2-1.3) H 10/18/17 12:00 AST 50 U/L (17-59) 10/18/17 12:00 ALT 56 U/L (21-72) 10/18/17 12:00 Alkaline Phosphatase 87 U/L (38-126) 10/18/17 12:00 Troponin I 0.0380 ng/mL (0.00-0.120) 10/19/17 12:17 NT-Pro-B Natriuret Pep 7130 pg/ml (0-900) H 10/18/17 18:33 Total Protein 7.0 G/DL (6.3-8.2) 10/18/17 12:00 Albumin 3.9 g/dL (3.5-5.0) 10/18/17 12:00 Globulin 3.1 gm/dL (2.2-3.9) 10/18/17 12:00 Albumin/Globulin Ratio 1.3 (1.0-2.1) 10/18/17 12:00 Lipase 60 U/L (23-300) 10/18/17 12:00 Urine Color Yellow (YELLOW) 10/18/17 11:51 Urine Clarity Clear (Clear) 10/18/17 11:51 Urine pH 7.0 (5.0-8.0) 10/18/17 11:51 Ur Specific [place] 1.013 (1.003-1.030) 10/18/17 11:51 Urine Protein >=500 mg/dL (NEGATIVE) 10/18/17 11:51 Urine Glucose (UA) Neg mg/dL (Normal) 10/18/17 11:51 Urine Ketones Negative mg/dL (NEGATIVE) 10/18/17 11:51 Urine Blood Negative (NEGATIVE) 10/18/17 11:51 Urine Nitrate Negative (NEGATIVE) 10/18/17 11:51 Urine Bilirubin Negative (NEGATIVE) 10/18/17 11:51 Urine Urobilinogen 2.0 mg/dL (0.2-1.0) 10/18/17 11:51 Ur Leukocyte Esterase Neg Moses/uL (Negative) 10/18/17 11:51 Urine RBC (Auto) 3 /hpf (0-3) 10/18/17 11:51 Urine Microscopic WBC < 1 /hpf (0-5) 10/18/17 11:51 - Hospital Course Hospital Course: This is an 81 year old male with past medical history significant for essential hypertension, gastritis, Severe diastolic CHF, mitral regurgitation, moderate pulmonary hypertension, gout, CKD, chronic atrial fibrillation anticoagulated on Pradaxa, Type 2 DM, admitted for acute on chronic diastolic CHF exacerbation and abdominal pain. He was seen by cardiology and slowly improved with high dose Lasix. Today his breathing is much improved and he feels better and is ambulatory. He is being discharged home today in stable condition. (1) Severe pulmonary hypertension, Diastolic CHF, acute on chronic, no evidence of LV hypertophy on echocardiogram this admission. Now improved. Admitted for fatigue, lower extremity edema and increased SOB elevated pro BNP Dr. Beaver on consultation for cardiology, agrees with current management Most recent ECHO: severe pulmonary hypertension, normal LV function with EF 60- 65%, moderate dilation of the left and right atrium, mild tricuspid regurgitation, moderate mitral regurgitation. cont Lasix 40 mg po daily Cozaar, Spironolactone Na restriction monitor I/O monitor BMP (2) Abdominal cramping, resolved, possibly due to gastroparesis no acute pathology on CT scan improved with normal abdominal exam bentyl PRN No signs of infection (3) Hypertension Cont Atenolol, Cozaar, Norvasc, Hydralazine improved after diuresis (4) Atrial fibrillation, chronic, rate controlled cont renally dosed Pradaxa cont Atenolol (4) CKD (chronic kidney disease) stage 4, GFR 15-29 ml/min 2.3-->2.7 Cr today Should gradually go back to baseline after IV lasix discontinued Needs close outpatient follow up cont Cozaar stable (5) DM2 (diabetes mellitus, type 2) home diabetic medications better controlled (6) Gouty arthritis cont Allopurinol (7) Gastritis cont pepcid (8) DVT prophylaxis Pt on Pradaxa Discharge Exam - Head Exam Head Exam: ATRAUMATIC, NORMAL INSPECTION, NORMOCEPHALIC - Additional Findings Additional findings: Physical exam: Constitutional- cooperative, awake, alert Head- NCAT, PERRL Eye- PERRL, EOMI ENT- normal exam, MMM. Neck- normal inspection, supple, no JVD Respiratory- CTAB, no wheezes rales rhonchi Cardiovascular- RRR, +S1, +S2 no MRG GI/Abdominal- normal bowel sounds, soft, no mass, no hsm Skin- warm, dry Extremities Exam- normal capillary refill, normal inspection Neurological Exam- alert, awake, oriented Psych- normal mood, normal affect Discharge Plan - Follow Up Plan Condition: STABLE Disposition: HOME/ ROUTINE Instructions: Heart Failure, Adult (DC), Heart Failure (DC), Heart Failure (GEN ), Pacemaker (DC), Pacemaker (GEN), Pulmonary Edema (DC), Pulmonary Edema (GEN) , Ascites (DC), Ascites (GEN), Hypertension (DC), Hypertension (GEN), Acute Abdominal Pain (DC), Acute Abdominal Pain (GEN) Additional Instructions: follow up appt. with 11/02/17 at 10:15am. follow up appt .with 10/27/17 at 10:15am Referrals: [email or web address] [place] [Outside] Mason Robertson MD [Family Provider] - Noe Bojorquez MD [Staff Provider] -
== END 2017-10-20 14:00 | disposition home or self-care (01) | DRG 291 ==
LOC: H.ER 10:26 → H.ERHOLD 19:09 → H.TEL 23:00 → OBSVTOIN 10-19 12:44
PROVIDERS: ADMIT Internal Medicine; ATTEND Internal Medicine
DX: I13.0 Hypertensive heart and chronic kidney disease with heart failure and stage 1 through stage 4 chronic kidney disease, or unspecified chronic kidney disease (principal); I50.33 Acute on chronic diastolic (congestive) heart failure; N18.4 Chronic kidney disease, stage 4 (severe); I08.1 Rheumatic disorders of both mitral and tricuspid valves; I48.2 Chronic atrial fibrillation; I27.20 Pulmonary hypertension, unspecified; E11.22 Type 2 diabetes mellitus with diabetic chronic kidney disease; E78.5 Hyperlipidemia, unspecified; E78.00 Pure hypercholesterolemia, unspecified; K29.70 Gastritis, unspecified, without bleeding; M10.9 Gout, unspecified; D73.89 Other diseases of spleen; H40.9 Unspecified glaucoma; Z79.01 Long term (current) use of anticoagulants; M19.90 Unspecified osteoarthritis, unspecified site

== ENCOUNTER 2018-09-27 10:37 | Emergency (ER) | payer OTHER ==
[2018-09-27 10:40] VITALS: RESP 18; TEMP 98
[2018-09-27 10:41] VITALS: BMI 34.4
--- NOTE | 2018-09-27 12:13 | ED PDOC ---
Lower Extremity Pain/Injury Time Seen by Provider: 09/27/18 11:16 Chief Complaint (Nursing): Lower Extremity Problem/Injury Chief Complaint (Provider): Lower Extremity Problem/Injury History Per: Patient History/Exam Limitations: no limitations Onset/Duration Of Symptoms: Days Current Symptoms Are (Timing): Still Present Additional Complaint(s): 82 year old male with a past medical history of atrial fibrillation, hypertension, diabetes, CHF, and hyperlipidemia who is presenting to the ED for evaluation of right leg pain and swelling onset 2 days ago. Patient states that he also has pain in right knee radiating to right foot where he noted some swelling. He denies any injury or trauma and admits to a history of arthritis and knee surgery many years ago. He also denies any chest pain, shortness of breath, or headaches. Patient reports that he also has diabetic neuropathy for which he takes gabapentin and admits that he is also taking Pradaxa. Of note, patient states that he has only been using Tylenol for pain control. PMD: Mason Robertson Past Medical History Reviewed: Historical Data, Nursing Documentation, Vital Signs Vital Signs: Last Vital Signs Temp 98 F 09/27/18 10:39 Pulse 97 H 09/27/18 10:39 Resp 18 09/27/18 10:39 BP 157/74 H 09/27/18 10:39 Pulse Ox 97 09/27/18 10:39 - Medical History PMH: Arthritis, Atrial Fibrillation, CHF, Diabetes (type II), Gastritis, HTN, Hypercholesterolemia, Hyperlipidemia, Chronic Kidney Disease Denies: HIV Other PMH: diabetic neuropathy - Surgical History Surgical History: Cholecystectomy, Hernia Repair Other surgeries: knee surgery - Family History Family History: States: Unknown Family Hx - Social History Current smoker - smoking cessation education provided: No Alcohol: None Drugs: Denies - Home Medications Home Medications: Ambulatory Orders Medication Instructions Recorded Allopurinol [Zyloprim] 100 mg PO DAILY 10/18/17 Atenolol [Tenormin] 50 mg PO DAILY 10/18/17 Fluticasone Propionate [Flovent 50 mcg IH DAILY 10/18/17 Diskus] Folic Acid 1 mg PO DAILY 10/18/17 Furosemide [Lasix] 40 mg PO DAILY 10/18/17 Gabapentin [Neurontin] 300 mg PO TID 10/18/17 Glipizide [Glipizide ER] 2.5 mg PO DAILY 10/18/17 Losartan [Cozaar] 50 mg PO DAILY 10/18/17 Omeprazole 20 mg PO DAILY 10/18/17 Paricalcitol [Zemplar] 1 mcg PO DAILY 10/18/17 Simvastatin [Zocor] 20 mg PO DAILY 10/18/17 Tramadol HCl [Ultram] 50 mg PO PRN PRN 10/18/17 Zolpidem [Ambien] 10 mg PO QPM 10/18/17 amLODIPine [Norvasc] 5 mg PO DAILY 10/18/17 traMADol [Ultram] 50 mg PO TID PRN #15 tab 09/27/18 - Allergies Allergies/Adverse Reactions: Allergies Allergy/AdvReac Type Severity Reaction Status Date / Time No Known Allergies Allergy Verified 08/09/16 10:45 Review of Systems ROS Statement: Except As Marked, All Systems Reviewed And Found Negative Cardiovascular: Negative for: Chest Pain Musculoskeletal: Positive for: Leg Pain, Other (leg swelling ) Physical Exam - Reviewed Nursing Documentation Reviewed: Yes Vital Signs Reviewed: Yes - Physical Exam Appears: Positive for: Non-toxic, No Acute Distress Head Exam: Positive for: ATRAUMATIC, NORMAL INSPECTION, NORMOCEPHALIC Skin: Positive for: Normal Color, Warm, DRY Eye Exam: Positive for: Normal appearance Cardiovascular/Chest: Positive for: Regular Rate, Rhythm Respiratory: Positive for: Normal Breath Sounds. Negative for: Respiratory Distress Extremity: Positive for: Normal ROM, Other (right leg swelling around knee right and right lower leg swelling, non-tender extremity with no ecchymosis or redness full ROM). Negative for: Deformity Neurological/Psych: Positive for: Awake, Alert, Normal Tone, Oriented. Negative for: Motor/Sensory Deficits - Laboratory Results Result Diagrams: 09/27/18 12:00 09/27/18 12:00 - ECG O2 Sat by Pulse Oximetry: 97 (RA) Pulse Ox Interpretation: Normal - Progress Re-evaluation Time: 16:23 Condition: Re-examined, Improved Medical Decision Making Medical Decision Making: Time: 11:25 Impression: non-traumatic leg pain Differentials: arthritis, peripheral neuropathy r/o DVT Plan: --BMP --Troponin --Uric Acid --CBC --ESR --Coags --X-Ray right knee --Morphine 2 mg IVP --Ultrasound Right Lower Extremity Ultrasound: FINDINGS: COMMON FEMORAL VEIN: Unremarkable. SUPERFICIAL FEMORAL VEIN: Unremarkable. POPLITEAL VEIN: Unremarkable. POSTERIOR TIBIAL VEIN: Unremarkable. OTHER FINDINGS: None. IMPRESSION: No evidence of deep venous thrombosis in the right lower extremity. Scribe Attestation: Documented by Sonia Mariscal, acting as a scribe for Efraín Metzger MD. Provider Scribe Attestation: All medical record entries made by the Scribe were at my direction and personally dictated by me. I have reviewed the chart and agree that the record accurately reflects my personal performance of the history, physical exam, medical decision making, and the department course for this patient. I have also personally directed, reviewed, and agree with the discharge instructions and disposition. Disposition - Clinical Impression Clinical Impression: Leg pain, right - Patient ED Disposition Is Patient to be Admitted: No Doctor Will See Patient In The: Office Counseled Patient/Family Regarding: Studies Performed, Diagnosis, Need For Followup - Disposition Referrals: Mason Robertson MD [Family Provider] - Disposition: Routine/Home Disposition Time: 16:24 Condition: GOOD Additional Instructions: BRAULIO HARRINGTON, thank you for letting us take care of you today. Your provider was Efraín Metzger MD and you were treated for RT LEG PAIN. The emergency medical care you received today was directed at your acute symptoms. If you were prescribed any medication, please fill it and take as directed. It may take several days for your symptoms to resolve. Return to the Emergency Department if your symptoms worsen, do not improve, or if you have any other problems. Please contact your doctor or call one of the physicians/clinics you have been referred to that are listed on the Patient Visit Information form that is included in your discharge packet. Bring any paperwork you were given at [facility] with you along with any medications you are taking to your follow up visit. Our treatment cannot replace ongoing medical care by a primary care provider outside of the emergency department. Thank you for allowing the [facility] team to be part of your care today. If you had an X-Ray or CT scan: A Radiologist will review the ED reading if any change in treatment is needed we will contact you. If you had a blood, urine, or wound culture: It will take several days for the results, if any change in treatment is needed we will contact you. If you had an STI test: It will take 48 hours for the results. Please call after 1 week if you have not heard back. Prescriptions: traMADol [Ultram] 50 mg PO TID PRN #15 tab PRN Reason: Pain, Severe (8-10) Instructions: Peripheral Neuropathy Print Language: QATARI
[2018-09-27 12:46] LABS: BASO # 0.1 K/uL (0.0-0.2); BASO % 0.8 % (0.0-2.0); EOS # 0.1 K/uL (0.0-0.7); EOS % 0.8 % (0.0-4.0); HEMOGLOBIN 14.7 g/dL (12.0-18.0); LYMPH # 0.9 K/uL (1.0-4.3); LYMPH % 9.2 % (20.0-40.0); MEAN CELL VOLUME 100.8 fl (80.0-94.0); MEAN CORPUSCULAR HEMOGLOBIN 32.9 pg (27.0-31.0); MEAN CORPUSCULAR HGB CONC 32.7 g/dL (33.0-37.0); MEAN PLATELET VOLUME 9.1 fl (7.2-11.7); MONO # 0.8 K/uL (0.0-0.8); MONO % 7.8 % (0.0-10.0); NEUT # 8.2 K/uL (1.8-7.0); NEUT % 81.4 % (50.0-75.0); PLATELET COUNT 104 K/uL (130-400); RBC 4.46 Mil/uL (4.40-5.90); WHITE BLOOD COUNT 10.1 K/uL (4.8-10.8)
[2018-09-27 12:54] LABS: CALCIUM 10.3 mg/dL (8.4-10.2); URIC ACID 7.3 mg/Dl (3.5-8.5)
[2018-09-27 13:06] LABS: TROPONIN I 0.022 ng/mL (0.00-0.120)
[2018-09-27 13:55] LABS: INR 1.2; PARTIAL THROMBOPLASTIN TIME 47.7 Seconds (25.6-37.1); PROTHROMBIN TIME 13.9 Seconds (9.8-13.1)
--- NOTE | 2018-09-27 14:37 | US ---
Date of service: 09/27/2018 PROCEDURE: Right lower extremity venous duplex Doppler. HISTORY: right leg pain swelling COMPARISON: None available. TECHNIQUE: Common femoral, superficial femoral, popliteal and posterior tibial veins were evaluated. Flow was assessed with color Doppler, compressibility, assessment of phasic flow and augmentation response. FINDINGS: COMMON FEMORAL VEIN: Unremarkable. SUPERFICIAL FEMORAL VEIN: Unremarkable. POPLITEAL VEIN: Unremarkable. POSTERIOR TIBIAL VEIN: Unremarkable. OTHER FINDINGS: None. IMPRESSION: No evidence of deep venous thrombosis in the right lower extremity.
[2018-09-27 14:38] LABS: BASOPHIL 1 % (0-2); EOSINOPHIL 1 % (0-7); LYMPHOCYTE 13 % (20-50); MONOCYTE 10 % (0-10); NEUTROPHIL 75 % (42-75); TOTAL CELLS COUNTED 100
[2018-09-27 14:40] LABS: PLATELET ESTIMATE DECREASED (NORMAL)
--- NOTE | 2018-09-27 15:34 | RAD ---
Date of service: 09/27/2018 PROCEDURE: Right Knee Radiographs. HISTORY: Knee pain. No trauma COMPARISON: Comparison made with radiographs of the right knee dated 08/09/2016 FINDINGS: BONES: Redemonstrated are old healed fracture deformities of the proximal medial tibial plateau as well as the proximal fibular shaft. No definitive evidence of acute displaced fracture nor dislocation. 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 JOINT EFFUSION: Suspect trace joint effusion OTHER FINDINGS: Vascular calcifications are present. IMPRESSION: No evidence of acute displaced fracture nor dislocation. Redemonstrated are old healed fracture deformities of the proximal medial tibial plateau as well as the proximal fibular shaft..
[2018-09-27 15:50] LABS: ERYTHROCYTE SEDIMENTATION RATE 8 mm/hr (0-20)
[2018-09-27 19:29] VITALS: BP 122/70; PULSE 70; O2SAT 100
== END 2018-09-27 18:00 | disposition home or self-care (01) ==
LOC: H.ER 10:37
DX: M79.604 Pain in right leg (principal); E11.40 Type 2 diabetes mellitus with diabetic neuropathy, unspecified; E78.00 Pure hypercholesterolemia, unspecified; I13.0 Hypertensive heart and chronic kidney disease with heart failure and stage 1 through stage 4 chronic kidney disease, or unspecified chronic kidney disease; Z79.84 Long term (current) use of oral hypoglycemic drugs
CPT/HCPCS: 73562; 80048; 84484; 84550; 85025; 85610; 85651; 85730; 93971; 96374; 99283; J2270